=== PATIENT | male | born 1960 | race Caucasian/White ===

== ENCOUNTER 2021-09-04 05:32 | Emergency (ER) | payer BC ==
[2021-09-04 05:41] VITALS: RESP 18
[2021-09-04] MEDS ORDERED: SODIUM CHLORIDE 0.9% 1,000 ML IV STA (05:42)
--- NOTE | 2021-09-04 05:42 | ED ---
Weakness HPI - General Chief complaint: Dizziness Stated complaint: Dizziness,Nausea Time Seen by Provider: 09/04/21 05:41 Source: patient, family, RN notes reviewed, old records reviewed Mode of arrival: wheelchair Limitations: no limitations - History of Present Illness Initial comments: This is a 61-year-old male DF for evaluation. Patient has no prior history of stroke CVA or CA. Patient presents with dizziness room spinning room was severely spinning around him. Symptoms began when he woke up with the bathroom today and persisted as he was in bed. He awoke with the symptoms worsen they were last night. Patient states the room is continuously spitting. He is dizzy and his feet. No prior history of vertigo, no current chest pain shortness of breath or headache MD Complaint: generalized weakness, difficulty walking -: hour(s) Location: generalized Severity: moderate Severity scale (1-10): 4 Consistency: intermittent, now resolved Improves with: none Worsens with: none Associated Symptoms: denies other symptoms - Related Data Previous Rx's Medication Instructions Recorded Meclizine [Antivert] 25 mg PO TID #15 tab 09/04/21 Allergies Allergy/AdvReac Type Severity Reaction Status Date / Time No Known Allergies Allergy Verified 09/04/21 05:41 Review of Systems ROS Statement: Those systems with pertinent positive or pertinent negative responses have been documented in the HPI. ROS Other: All systems not noted in ROS Statement are negative. Past Medical History Past Medical History: Hypertension History of Any Multi-Drug Resistant Organisms: None Reported Past Surgical History: Orthopedic Surgery Additional Past Surgical History / Comment(s): December 2005 left hip replacement, 2006 right hip replacement Past Psychological History: No Psychological Hx Reported Smoking Status: Never smoker Past Alcohol Use History: None Reported Past Drug Use History: None Reported General Exam - General Exam Comments Initial Comments: NIH of 0 [id number] testing is normal Finger-nose testing is normal Limitations: no limitations General appearance: alert, in no apparent distress Head exam: Present: atraumatic, normocephalic, normal inspection Eye exam: Present: normal appearance, PERRL, EOMI. Absent: scleral icterus, conjunctival injection, periorbital swelling ENT exam: Present: normal exam, mucous membranes moist Neck exam: Present: normal inspection. Absent: tenderness, meningismus, lymphadenopathy Respiratory exam: Present: normal lung sounds bilaterally. Absent: respiratory distress, wheezes, rales, rhonchi, stridor Cardiovascular Exam: Present: regular rate, normal rhythm, normal heart sounds. Absent: systolic murmur, diastolic murmur, rubs, gallop, clicks GI/Abdominal exam: Present: soft, normal bowel sounds. Absent: distended, tenderness, guarding, rebound, rigid Extremities exam: Present: normal inspection, full ROM, normal capillary refill. Absent: tenderness, pedal edema, joint swelling, calf tenderness Back exam: Present: normal inspection Neurological exam: Present: alert, oriented X3, CN II-XII intact Psychiatric exam: Present: normal affect, normal mood Skin exam: Present: warm, dry, intact, normal color. Absent: rash Course Vital Signs 09/04/21 09/04/21 09/04/21 05:35 06:22 07:36 Temperature 97.1 F L 97.4 F L Pulse Rate 60 52 L 56 L Respiratory 18 18 18 Rate Blood Pressure 143/79 126/75 132/76 O2 Sat by Pulse 97 95 97 Oximetry - Reevaluation(s) Reevaluation #1: 09/04/21 06:14 Medical record is reviewed Reevaluation #2: Patient symptoms are resolved Patient remains able to walk without ataxia Patient informed results and questions answered EKG Findings - EKG Comments: EKG Findings:: EKG shows sinus bradycardia 58 CT 203 QRS 108 QTc 449 Medical Decision Making - Medical Decision Making 61 male who presented with vertiginous symptoms currently without symptoms. - Lab Data Result diagrams: 09/04/21 06:22 09/04/21 06:22 Lab Results 09/04/21 09/04/21 09/04/21 Range/Units 06:22 06:22 06:22 WBC 7.4 (3.8-10.6) k/uL RBC 5.07 (4.30-5.90) m/uL Hgb 15.7 (13.0-17.5) gm/dL Hct 46.5 (39.0-53.0) % MCV 91.7 (80.0-100.0) fL MCH 31.0 (25.0-35.0) pg MCHC 33.9 (31.0-37.0) g/dL RDW 13.1 (11.5-15.5) % Plt Count 121 L (150-450) k/uL MPV 7.5 Neutrophils % 76 % Lymphocytes % 18 % Monocytes % 4 % Eosinophils % 1 % Basophils % 1 % Neutrophils # 5.6 (1.3-7.7) k/uL Lymphocytes # 1.3 (1.0-4.8) k/uL Monocytes # 0.3 (0-1.0) k/uL Eosinophils # 0.1 (0-0.7) k/uL Basophils # 0.0 (0-0.2) k/uL PT 10.9 (9.0-12.0) sec INR 1.0 (<1.2) APTT 21.9 L (22.0-30.0) sec Sodium 138 (137-145) mmol/L Potassium 4.5 (3.5-5.1) mmol/L Chloride 108 H (98-107) mmol/L Carbon Dioxide 21 L (22-30) mmol/L Anion Gap 9 mmol/L BUN 23 H (9-20) mg/dL Creatinine 0.95 (0.66-1.25) mg/dL Est GFR (CKD-EPI)AfAm >90 (>60 ml/min/1.73 sqM) Est GFR (CKD-EPI)NonAf 87 (>60 ml/min/1.73 sqM) Glucose 164 H (74-99) mg/dL Plasma Lactic Acid Ashwin (0.7-2.0) mmol/L Calcium 9.1 (8.4-10.2) mg/dL Phosphorus 2.6 (2.5-4.5) mg/dL Magnesium 1.9 (1.6-2.3) mg/dL Total Bilirubin 0.8 (0.2-1.3) mg/dL AST 42 (17-59) U/L ALT 50 H (4-49) U/L Alkaline Phosphatase 57 (38-126) U/L Troponin I (0.000-0.034) ng/mL NT-Pro-B Natriuret Pep pg/mL Total Protein 7.3 (6.3-8.2) g/dL Albumin 4.3 (3.5-5.0) g/dL Urine Color Urine Appearance (Clear) Urine pH (5.0-8.0) Ur Specific [place] (1.001-1.035) Urine Protein (Negative) Urine Glucose (UA) (Negative) Urine Ketones (Negative) Urine Blood (Negative) Urine Nitrite (Negative) Urine Bilirubin (Negative) Urine Urobilinogen (<2.0) mg/dL Ur Leukocyte Esterase (Negative) 09/04/21 09/04/21 09/04/21 Range/Units 06:22 06:22 06:22 WBC (3.8-10.6) k/uL RBC (4.30-5.90) m/uL Hgb (13.0-17.5) gm/dL Hct (39.0-53.0) % MCV (80.0-100.0) fL MCH (25.0-35.0) pg MCHC (31.0-37.0) g/dL RDW (11.5-15.5) % Plt Count (150-450) k/uL MPV Neutrophils % % Lymphocytes % % Monocytes % % Eosinophils % % Basophils % % Neutrophils # (1.3-7.7) k/uL Lymphocytes # (1.0-4.8) k/uL Monocytes # (0-1.0) k/uL Eosinophils # (0-0.7) k/uL Basophils # (0-0.2) k/uL PT (9.0-12.0) sec INR (<1.2) APTT (22.0-30.0) sec Sodium (137-145) mmol/L Potassium (3.5-5.1) mmol/L Chloride (98-107) mmol/L Carbon Dioxide (22-30) mmol/L Anion Gap mmol/L BUN (9-20) mg/dL Creatinine (0.66-1.25) mg/dL Est GFR (CKD-EPI)AfAm (>60 ml/min/1.73 sqM) Est GFR (CKD-EPI)NonAf (>60 ml/min/1.73 sqM) Glucose (74-99) mg/dL Plasma Lactic Acid Ashwin 1.6 (0.7-2.0) mmol/L Calcium (8.4-10.2) mg/dL Phosphorus (2.5-4.5) mg/dL Magnesium (1.6-2.3) mg/dL Total Bilirubin (0.2-1.3) mg/dL AST (17-59) U/L ALT (4-49) U/L Alkaline Phosphatase (38-126) U/L Troponin I <0.012 (0.000-0.034) ng/mL NT-Pro-B Natriuret Pep 80 pg/mL Total Protein (6.3-8.2) g/dL Albumin (3.5-5.0) g/dL Urine Color Urine Appearance (Clear) Urine pH (5.0-8.0) Ur Specific [place] (1.001-1.035) Urine Protein (Negative) Urine Glucose (UA) (Negative) Urine Ketones (Negative) Urine Blood (Negative) Urine Nitrite (Negative) Urine Bilirubin (Negative) Urine Urobilinogen (<2.0) mg/dL Ur Leukocyte Esterase (Negative) 09/04/21 Range/Units 06:45 WBC (3.8-10.6) k/uL RBC (4.30-5.90) m/uL Hgb (13.0-17.5) gm/dL Hct (39.0-53.0) % MCV (80.0-100.0) fL MCH (25.0-35.0) pg MCHC (31.0-37.0) g/dL RDW (11.5-15.5) % Plt Count (150-450) k/uL MPV Neutrophils % % Lymphocytes % % Monocytes % % Eosinophils % % Basophils % % Neutrophils # (1.3-7.7) k/uL Lymphocytes # (1.0-4.8) k/uL Monocytes # (0-1.0) k/uL Eosinophils # (0-0.7) k/uL Basophils # (0-0.2) k/uL PT (9.0-12.0) sec INR (<1.2) APTT (22.0-30.0) sec Sodium (137-145) mmol/L Potassium (3.5-5.1) mmol/L Chloride (98-107) mmol/L Carbon Dioxide (22-30) mmol/L Anion Gap mmol/L BUN (9-20) mg/dL Creatinine (0.66-1.25) mg/dL Est GFR (CKD-EPI)AfAm (>60 ml/min/1.73 sqM) Est GFR (CKD-EPI)NonAf (>60 ml/min/1.73 sqM) Glucose (74-99) mg/dL Plasma Lactic Acid Ashwin (0.7-2.0) mmol/L Calcium (8.4-10.2) mg/dL Phosphorus (2.5-4.5) mg/dL Magnesium (1.6-2.3) mg/dL Total Bilirubin (0.2-1.3) mg/dL AST (17-59) U/L ALT (4-49) U/L Alkaline Phosphatase (38-126) U/L Troponin I (0.000-0.034) ng/mL NT-Pro-B Natriuret Pep pg/mL Total Protein (6.3-8.2) g/dL Albumin (3.5-5.0) g/dL Urine Color Yellow Urine Appearance Clear (Clear) Urine pH 5.0 (5.0-8.0) Ur Specific [place] 1.022 (1.001-1.035) Urine Protein Negative (Negative) Urine Glucose (UA) Negative (Negative) Urine Ketones Negative (Negative) Urine Blood Negative (Negative) Urine Nitrite Negative (Negative) Urine Bilirubin Negative (Negative) Urine Urobilinogen <2.0 (<2.0) mg/dL Ur Leukocyte Esterase Negative (Negative) - Radiology Data Radiology results: report reviewed (CT brain negative for acute disease), image reviewed Disposition Clinical Impression: Vertigo Disposition: HOME SELF-CARE Condition: Good Instructions (If sedation given, give patient instructions): Vertigo (ED) Prescriptions: Meclizine [Antivert] 25 mg PO TID #15 tab Is patient prescribed a controlled substance at d/c from ED?: No Referrals: Crystal Wills MD [Primary Care Provider] - 1-2 days
[2021-09-04] MEDS ORDERED: ONDANSETRON 4 MG TAB PO STA (06:04)
[2021-09-04] MEDS ORDERED: diphenhydrAMINE 50 MG/ML 1 ML VIAL IVP STA (06:04)
[2021-09-04] MEDS ORDERED: MECLIZINE 12.5 MG TAB PO STA (06:04)
[2021-09-04 06:36] LABS: Basophils % (A) 1 %; Eosinophils # (A) 0.1 k/uL (0-0.7); Eosinophils % (A) 1 %; HCT 46.5 % (39.0-53.0); HGB 15.7 gm/dL (13.0-17.5); Lymphocytes # (A) 1.3 k/uL (1.0-4.8); Lymphocytes % (A) 18 %; MCHC 33.9 g/dL (31.0-37.0); MCV 91.7 fL (80.0-100.0); Mean Platelet Volume 7.5; Monocytes # (A) 0.3 k/uL (0-1.0); Monocytes % (A) 4 %; Neutrophils # (A) 5.6 k/uL (1.3-7.7); Neutrophils % (A) 76 %; Platelet Count 121 k/uL (150-450); RBC 5.07 m/uL (4.30-5.90); RDW 13.1 % (11.5-15.5); WBC 7.4 k/uL (3.8-10.6)
[2021-09-04 06:51] LABS: Prothrombin Time 10.9 sec (9.0-12.0)
[2021-09-04 06:52] LABS: ALT 50 U/L (4-49); AST 42 U/L (17-59); African American GFR (CKD) >90 (>60 ml/min/1.73 sqM); Albumin 4.3 g/dL (3.5-5.0); Alkaline Phosphatase 57 U/L (38-126); Anion Gap 9 mmol/L; Blood Urea Nitrogen 23 mg/dL (9-20); Calcium 9.1 mg/dL (8.4-10.2); Carbon Dioxide 21 mmol/L (22-30); Chloride 108 mmol/L (98-107); Glucose 164 mg/dL (74-99); Magnesium 1.9 mg/dL (1.6-2.3); Non-African American GFR(CKD) 87 (>60 ml/min/1.73 sqM); Partial Thromboplastin Time 21.9 sec (22.0-30.0); Phosphorus 2.6 mg/dL (2.5-4.5); Potassium 4.5 mmol/L (3.5-5.1); Sodium 138 mmol/L (137-145); Total Bilirubin 0.8 mg/dL (0.2-1.3); Total Protein 7.3 g/dL (6.3-8.2)
[2021-09-04 07:01] LABS: Appearance,Urine Clear (Clear); Bilirubin,Urine Negative (Negative); Blood,Urine Negative (Negative); Color,Urine Yellow; Glucose,Urine (UA) Negative (Negative); Ketones,Urine Negative (Negative); Leukocyte Esterase,Urine Negative (Negative); Nitrite,Urine Negative (Negative); Protein,Urine Negative (Negative); Specific Gravity,Urine 1.022 (1.001-1.035); Urobilinogen,Urine <2.0 mg/dL (<2.0)
--- NOTE | 2021-09-04 07:02 | CT ---
EXAMINATION TYPE: CT brain cspine wo con DATE OF EXAM: 09/04/2021 COMPARISON: None HISTORY: dizziness CT DLP: 2099 mGycm Automated exposure control for dose reduction was used. Images of the brain and cervical spine without contrast. Ventricles have normal size. There is no mass effect nor midline shift. There is no sign of intracran ial hemorrhage. The calvarium is intact. There is normal aeration of the mastoid sinuses. There is so me mucosal thickening in the ethmoid sinuses. Skull base is intact. The cervical vertebra have normal alignment. There is some anterior mild spurring at C4-5 and C5-6 an d C6-7. Facet joints are intact. There is no compression fracture. IMPRESSION: Hypertrophic mild degenerative changes in the mid and lower cervical spine. No fracture. Negative CT scan of the brain. Mild ethmoid sinusitis.
[2021-09-04 07:55] VITALS: BP 132/76; PULSE 56; TEMP 97.4
== END 2021-09-04 07:36 | disposition home or self-care (01) ==
LOC: EC 05:32
DX: R42 Dizziness and giddiness (principal); I10 Essential (primary) hypertension
CPT/HCPCS: 36415; 93005; 83880; 80053; 83605; 83735; 84100; 84484; 85025; 85610; 85730; 81003; 72125; 70450; 99284; 96374; J1200

== ENCOUNTER 2023-07-22 18:46 | Emergency (ER) | payer BC ==
[2023-07-22] MEDS ORDERED: SODIUM CHLORIDE 0.9% 1,000 ML IV STA (19:14)
[2023-07-22 19:44] LABS: Basophils # (A) 0.1 k/uL (0-0.2); Basophils % (A) 1 %; Eosinophils # (A) 0.1 k/uL (0-0.7); Eosinophils % (A) 2 %; HCT 47.3 % (39.0-53.0); HGB 16.2 gm/dL (13.0-17.5); Lymphocytes # (A) 2.3 k/uL (1.0-4.8); Lymphocytes % (A) 24 %; MCH 30.7 pg (25.0-35.0); MCHC 34.2 g/dL (31.0-37.0); MCV 89.9 fL (80.0-100.0); Monocytes # (A) 0.7 k/uL (0-1.0); Monocytes % (A) 7 %; Neutrophils # (A) 6.2 k/uL (1.3-7.7); Neutrophils % (A) 65 %; Platelet Count 146 k/uL (150-450); RBC 5.26 m/uL (4.30-5.90); RDW 13.2 % (11.5-15.5); WBC 9.6 k/uL (3.8-10.6)
[2023-07-22 19:49] LABS: ALT 86 U/L (4-49); AST 89 U/L (17-59); African American GFR (CKD) 75 (>60 ml/min/1.73 sqM); Albumin 4.6 g/dL (3.5-5.0); Alkaline Phosphatase 82 U/L (38-126); Anion Gap 13 mmol/L; Blood Urea Nitrogen 20 mg/dL (9-20); Carbon Dioxide 23 mmol/L (22-30); Chloride 102 mmol/L (98-107); Glucose 209 mg/dL (74-99); Magnesium 1.9 mg/dL (1.6-2.3); Non-African American GFR(CKD) 65 (>60 ml/min/1.73 sqM); Potassium 4.2 mmol/L (3.5-5.1); Sodium 138 mmol/L (137-145); Total Bilirubin 0.6 mg/dL (0.2-1.3); Total Protein 7.6 g/dL (6.3-8.2)
--- NOTE | 2023-07-22 20:12 | XR ---
EXAMINATION TYPE: XR chest 2V DATE OF EXAM: 07/22/2023 8:00 PM CLINICAL INDICATION:Male, 62 years old with history of dysrhythmia; [facility] COMPARISON: None TECHNIQUE: XR chest 2V Frontal and lateral views of the chest. FINDINGS: Lungs/Pleura: There is no evidence of pleural effusion, focal consolidation, or pneumothorax. Pulmonary vascularity: Unremarkable. Heart/mediastinum: Cardiomediastinal silhouette is unremarkable. Musculoskeletal: No acute osseous pathology. IMPRESSION: No acute cardiopulmonary disease/process.
[2023-07-22 20:59] VITALS: RESP 18
--- NOTE | 2023-07-22 21:21 | ED ---
General Adult HPI - General Chief complaint: Arrhythmia/Palpitations Stated complaint: High Heart Rate Time Seen by Provider: 07/22/23 19:02 Source: patient, family, RN notes reviewed, old records reviewed Mode of arrival: wheelchair Limitations: no limitations - History of Present Illness Initial comments: Patient is a 62-year-old male presents emergency Department with palpitations and tachycardia. States he feels like his heart is racing. States this has occurred previously. I was notified of the patient while he was in a TPA and it showed he was in SVT. Patient was immediately placed in trauma bay 4. He denies any chest pain, abdominal pain, nausea, vomiting. No something cardiac history other than hypertension. Patient is obese. States he has had these types of palpitations in the past but usually self resolved. These symptoms pe rsisted for over 30 minutes prior to arrival. Other acute complaint at this time. Denies any fevers, chills, cough. Presents for further evaluation. - Related Data Home Medications Medication Instructions Recorded Confirmed Atorvastatin [Lipitor] 20 mg PO DAILY 07/22/23 07/22/23 Triamterene-Hctz 37.5-25Mg 1 tab PO DAILY 07/22/23 07/22/23 [Maxzide 37.5-25] amLODIPine [Norvasc] 10 mg PO DAILY 07/22/23 07/22/23 lisinopriL [Zestril] 10 mg PO DAILY 07/22/23 07/22/23 Allergies Allergy/AdvReac Type Severity Reaction Status Date / Time No Known Allergies Allergy Verified 07/22/23 20:57 Review of Systems ROS Statement: Those systems with pertinent positive or pertinent negative responses have been documented in the HPI. Review of Systems: CONST: Denies fever EYES: Denies blurry vision ENT: Denies nasal congestion C/V: Endorses Tachycardia, palpitations RESP: Denies shortness of breath GI: Denies abdominal pain : Denies dysuria SKIN: Denies rash. MSK: Denies joint pain. NEURO: Denies headache ROS Other: All systems not noted in ROS Statement are negative. Past Medical History Past Medical History: Hypertension History of Any Multi-Drug Resistant Organisms: None Reported Past Surgical History: Orthopedic Surgery Additional Past Surgical History / Comment(s): December 2005 left hip replacement, 2006 right hip replacement Past Psychological History: No Psychological Hx Reported Smoking Status: Never smoker Past Alcohol Use History: None Reported Past Drug Use History: None Reported General Exam - General Exam Comments Initial Comments: General: Appears in no acute distress. HEAD: Normal with no signs of head trauma. EYES: PERRLA, EOMI, conjunctiva normal, no discharge. ENT: Hearing grossly intact, normal oropharynx. RESPIRATORY: Clear breath sounds bilaterally. No wheezes, rales, or rhonchi. C/V: Tachycardia. S1 and S2 auscultated, no edema, peripheral pulses 2+ and intact throughout ABD: Abd is soft, nontender, nondistended EXT: Normal range of motion, no obvious deformity SKIN: No rashes or lesions observed on exposed skin. NEURO: Alert and oriented x 4. Limitations: no limitations Course Vital Signs 07/22/23 07/22/23 07/22/23 18:50 19:16 20:54 Temperature 98.6 F Pulse Rate 191 H 98 106 H Respiratory 20 16 18 Rate Blood Pressure 126/67 120/78 130/84 O2 Sat by Pulse 95 97 97 Oximetry 07/22/23 21:27 Temperature 98.3 F Pulse Rate 92 Respiratory 18 Rate Blood Pressure 128/75 O2 Sat by Pulse 99 Oximetry Medical Decision Making - Medical Decision Making Was pt. sent in by a medical professional or institution (, PA, MUSSEL FARMER, urgent care, hospital, or retirement...) When possible be specific @ -No Did you speak to anyone other than the patient for history (EMS, parent, family, police, friend...)? What history was obtained from this source @ -Presents with daughter who assists with the patient's past medical history. Did you review nursing and triage notes (agree or disagree)? Why? @ -I reviewed and agree with nursing and triage notes Were old charts reviewed (outside hosp., previous admission, EMS record, old EKG, old radiological studies, urgent care reports/EKG's, retirement records)? Report findings @ -No old charts were reviewed Differential Diagnosis (chest pain, altered mental status, abdominal pain women, abdominal pain men, vaginal bleeding, weakness, fever, dyspnea, syncope, headache, dizziness, GI bleed, back pain, seizure, CVA, palpatations, mental health, musculoskeletal)? @ -Differential Palpitations Ventricular arrhythmias, atrial arrhythmias, myocardial infarction, anemia, thyrotoxicosis, electrolyte imbalance, hypokalemia, pulmonary embolism, pulmonary disease, drugs, alcohol, anxiety, stress.... This is not meant to be an all-inclusive list. EKG interpreted by me (3pts min.). @ -As above X-rays interpreted by me (1pt min.). @ -Chest x-ray reveals no obvious acute cardio pulmonary process. CT interpreted by me (1pt min.). @ -None done U/S interpreted by me (1pt. min.). @ -None done What testing was considered but not performed or refused? (CT, X-rays, U/S, labs)? Why? @ -None What meds were considered but not given or refused? Why? @ -None Did you discuss the management of the patient with other professionals (professionals i.e. , PA, [employer]SEL F[employer]ER, lab, RT, psych nurse, social science professor, soldering machine feeder, teacher, sustainability officer, case managers)? Give summary @ -No Was smoking cessation discussed for >3mins.? @ -No Was critical care preformed (if so, how long)? @ -Yes, 10 minutes Were there social determinants of health that impacted care today? How? (Homelessness, low income, unemployed, alcoholism, drug addiction, transportat ion, low edu. Level, literacy, decrease access to med. care, correction, rehab)? @ -No Was there de-escalation of care discussed even if they declined (Discuss DNR or withdrawal of care, Hospice)? DNR status @ -No What co-morbidities impacted this encounter? (DM, HTN, Smoking, COPD, CAD, Cancer, CVA, ARF, Chemo, Hep., AIDS, mental health diagnosis, sleep apnea, morbid obesity)? @ -None Was patient admitted / discharged? Hospital course, mention meds given and route, prescriptions, significant lab abnormalities, going to OR and other pertinent info. @ -Based on the patient's presentation and physical exam, presents in SVT. Patient was placed in trauma bay 4. His no acute complaints other than feeling of his heart racing. Believes this may have happened previously however this is a persistent episode. Patient is hemodynamically stable with normal vital signs. IV was initiated. Patient was placed on cardiac pads in the event he becomes unstable, and vagal maneuver was attempted. Vagal maneuver was successful and patient was converted to normal sinus rhythm. Repeat EKG doesn't support this. We'll obtain basic labs at this time as well as chest x-ray. He is asymptomatic at this time. He was in agreement this plan. Patient's labs within acceptable limits. Vital signs negative. Chest x-ray unremarkable. EKGs show no sign of acute ischemia. On reevaluation come patient remains asymptomatic. We discussed his workup. He will be discharged home at this time. He was in agreement this plan. Recommended follow-up with cardiology in his PCP. He was in agreement with this plan. I instructed the patient to follow up with their PCP in the next 1-3 days. I explained that the patient should return to the emergency department if they experience any worsening symptoms. Strict return precautions were discussed with the patient. The patient expressed understanding of these instructions. I answered all questions that the patient had. The patient was discharged home in good condition with their prescriptions and follow up information. Undiagnosed new problem with uncertain prognosis? @ -No Drug Therapy requiring intensive monitoring for toxicity (Heparin, Nitro, Insu sergey, Cardizem)? @ -No Were any procedures done? @ -No Diagnosis/symptom? @ -Supraventricular tachycardia Acute, or Chronic, or Acute on Chronic? @ -Acute Uncomplicated (without systemic symptoms) or Complicated (systemic symptoms)? @ -Complicated Side effects of treatment? @ -No Exacerbation, Progression, or Severe Exacerbation? @ -No Poses a threat to life or bodily function? How? (Chest pain, USA, NC, pneumonia, PE, COPD, DKA, ARF, appy, cholecystitis, CVA, Diverticulitis, Homicidal, Suicidal, threat to staff... and all critical care pts) @ -No - Lab Data Result diagrams: 07/22/23 19:16 07/22/23 19:16 Lab Results 07/22/23 07/22/23 07/22/23 Range/Units 19:16 19:16 19:16 WBC 9.6 (3.8-10.6) k/uL RBC 5.26 (4.30-5.90) m/uL Hgb 16.2 (13.0-17.5) gm/dL Hct 47.3 (39.0-53.0) % MCV 89.9 (80.0-100.0) fL MCH 30.7 (25.0-35.0) pg MCHC 34.2 (31.0-37.0) g/dL RDW 13.2 (11.5-15.5) % Plt Count 146 L (150-450) k/uL MPV 8.0 Neutrophils % 65 % Lymphocytes % 24 % Monocytes % 7 % Eosinophils % 2 % Basophils % 1 % Neutrophils # 6.2 (1.3-7.7) k/uL Lymphocytes # 2.3 (1.0-4.8) k/uL Monocytes # 0.7 (0-1.0) k/uL Eosinophils # 0.1 (0-0.7) k/uL Basophils # 0.1 (0-0.2) k/uL Sodium 138 (137-145) mmol/L Potassium 4.2 (3.5-5.1) mmol/L Chloride 102 (98-107) mmol/L Carbon Dioxide 23 (22-30) mmol/L Anion Gap 13 mmol/L BUN 20 (9-20) mg/dL Creatinine 1.20 (0.66-1.25) mg/dL Est GFR (CKD-EPI)AfAm 75 (>60 ml/min/1.73 sqM) Est GFR (CKD-EPI)NonAf 65 (>60 ml/min/1.73 sqM) Glucose 209 H (74-99) mg/dL Calcium 9.0 (8.4-10.2) mg/dL Magnesium 1.9 (1.6-2.3) mg/dL Total Bilirubin 0.6 (0.2-1.3) mg/dL AST 89 H (17-59) U/L ALT 86 H (4-49) U/L Alkaline Phosphatase 82 (38-126) U/L Total Protein 7.6 (6.3-8.2) g/dL Albumin 4.6 (3.5-5.0) g/dL Influenza Type A (PCR) Not Detected (Not Detectd) Influenza Type B (PCR) Not Detected (Not Detectd) RSV (PCR) Not Detected (Not Detectd) SARS-CoV-2 (PCR) Not Detected (Not Detectd) - EKG Data -: EKG Interpreted by Me EKG Comments: 12-lead Electrocardiogram Interpretation Note EKG was reviewed and interpreted by myself. 12-lead ECG performed at 1859 is interpreted by me as revealing supraventricular tachycardia at a rate of 191 beats per minute. Left axis deviation. QRS duration is 113 ms, QTc is 351 ms.. There were no ST or T wave abnormalities to suggest myocardial ischemia or injury. R wave progression across the precordium was satisfactory. By my interpretation this EKG is non-diagnostic for acute ischemia. 12-lead Electrocardiogram Interpretation Note EKG was reviewed and interpreted by myself. 12-lead ECG performed at 1912 is interpreted by me as revealing sinus tachycardia at a rate of 108 beats per minute. Left axis deviation. IL interval is 151 ms, QRS duration is 101 ms, QTc is 392 ms.. There were no ST or T wave abnormalities to suggest myocardial ischemia or injury. R wave progression across the precordium was satisfactory. By my interpretation this EKG is non-diagnostic for acute ischemia. Critical Care Time Critical Care Time: Yes Total Critical Care Time: 10 Disposition Clinical Impression: SVT (supraventricular tachycardia) Disposition: HOME SELF-CARE Condition: Good Instructions (If sedation given, give patient instructions): Supraventricular Tachycardia (ED) Is patient prescribed a controlled substance at d/c from ED?: No Referrals: Efrain Quan MD [Primary Care Provider] - 1-2 days Time of Disposition: 21:15
[2023-07-22 21:45] VITALS: BP 128/75; PULSE 92; TEMP 98.3
== END 2023-07-22 21:28 | disposition home or self-care (01) ==
LOC: EC 18:46
DX: I47.10 Supraventricular tachycardia, unspecified (principal); I10 Essential (primary) hypertension; E66.9 Obesity, unspecified; Z20.822 Contact with and (suspected) exposure to COVID-19; Z68.42 Body mass index [BMI] 45.0-49.9, adult; Z79.899 Other long term (current) drug therapy
CPT/HCPCS: 36415; 71046; 80053; 83735; 84443; 85025; 87636; 93005; 96360; 99285

== ENCOUNTER 2024-05-08 09:07 | Day surgery (SDC) | payer BC ==
[~2024-05-08 09:07] MED LIST: LIDOCAINE 1% (10MG/ML) FOR IV START INTRADERMA PRN
[2024-05-08 09:36] VITALS: RESP 16; TEMP 97.4
[2024-05-08] MEDS: LACTATED RINGERS 1,000 ML IV SCH (09:43)
[2024-05-08] MEDS: IV FLUID CONTINUATION 1,000 ML IV ONE (09:43)
[2024-05-08] MEDS ORDERED: PROPOFOL 10 MG/ML 20 ML VIAL IV ONE (09:46)
--- NOTE | 2024-05-08 09:51 | P.GSHP ---
History of Present Illness H&P Date: 05/08/24 Chief Complaint: Colon cancer screening 63-year-old male here for colonoscopy. Last colonoscopy 10 to 12 years ago. That was normal. No bowel complaints. No family history of colon cancer. Past Medical History Past Medical History: Diabetes Mellitus, Hyperlipidemia, Hypertension, Supraventricular Tachycardia (SVT) Additional Past Medical History / Comment(s): A1C now 5.4 ; diagnosed with SVT 6 months ago. 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 Past Anesthesia/Blood Transfusion Reactions: No Reported Reaction Smoking Status: Never smoker - Past Family History Father Family Medical History: No Reported History Medications and Allergies Home Medications Medication Instructions Recorded Confirmed Type Atorvastatin [Lipitor] 20 mg PO DAILY 07/22/23 05/03/24 History Triamterene-Hctz 37.5-25Mg 1 tab PO DAILY 07/22/23 05/03/24 History [Maxzide 37.5-25] amLODIPine [Norvasc] 10 mg PO DAILY 07/22/23 05/03/24 History lisinopriL [Zestril] 10 mg PO DAILY 07/22/23 05/03/24 History Dapagliflozin Propanediol [Farxiga] 10 mg PO DAILY 01/12/24 05/03/24 History Metoprolol Tartrate 25 mg PO BID 01/12/24 05/03/24 History Semaglutide [Ozempic] 2 mg SQ CHANDLER 05/03/24 05/03/24 History Allergies Allergy/AdvReac Type Severity Reaction Status Date / Time No Known Allergies Allergy Verified 05/08/24 09:32 Surgical - Exam Vital Signs Temp Pulse Resp BP Pulse Ox 97.4 F L 83 16 147/78 96 05/08/24 09:34 05/08/24 09:34 05/08/24 09:34 05/08/24 09:34 05/08/24 09:34 Physical exam: General: Well-developed, well-nourished HEENT: Normocephalic, sclerae nonicteric Abdomen: Nontender, nondistended Extremities: No edema Neuro: Alert and oriented Assessment and Plan (1) Colon cancer screening Narrative/Plan: Will proceed with colonoscopy at this time. Current Visit: Yes Status: Acute Code(s): Z12.11 - ENCOUNTER FOR SCREENING FOR MALIGNANT NEOPLASM OF COLON SNOMED Code(s): 918176553
--- NOTE | 2024-05-08 10:06 | P.PCN ---
Date of Procedure: 05/08/24 Procedure(s) Performed: PREOPERATIVE DIAGNOSIS: Colon cancer screening POSTOPERATIVE DIAGNOSIS: Tortuous colon otherwise normal PROCEDURE: Colonoscopy ANESTHESIA: MAC SURGEON: Geronimo Nevarez M.D. SPECIMENS: None ENDOSCOPIC PROCEDURE: The patient was placed on the endoscopy table in the left decubitus position. The Olympus colonoscope was inserted into the anus and passed under direct visualization to the region of the cecum. I was unable to advance the scope into the base of the cecum. The patient's colon was fairly tortuous. This was despite multiple position changes and abdominal pressures. The scope was then withdrawn. There were no neoplastic inflammatory or polypoid lesions throughout the cecum, ascending, transverse, descending, sigmoid and rectum. There was no visible diverticulosis noted. Digital rectal examination was normal. The patient was taken to the recovery room in stable condition per anesthesia guidelines. RECOMMENDATIONS: Resume diet. Repeat colonoscopy 7 to 10 years.
[2024-05-08 10:33] VITALS: BP 117/76; PULSE 82
== END 2024-05-08 10:54 | disposition home or self-care (01) ==
LOC: ORWHC2ENDO 09:07
PROVIDERS: ATTEND Surgery

== ENCOUNTER → 2024-05-11 | Outpatient (CLI) | payer BC ==
--- NOTE | 2024-05-11 11:07 | CT ---
EXAMINATION TYPE: CT abdomen pelvis wo/w con DATE OF EXAM: 05/11/2024 COMPARISON: None HISTORY: RLQ PAIN CT DLP: 3328 mGycm CONTRAST: CT scan of the abdomen and pelvis is performed with Oral Contrast and without and with IV Contrast, p atient injected with 100ml mL of Isovue 370. FINDINGS: LUNG BASES-: No visible nodule. No infiltrate. LIVER/GB: No calcified gallstones. No space occupying hepatic lesion. Biliary tree is of normal ca liber. PANCREAS: No inflammation. No distinct mass. SPLEEN: No splenic enlargement. No lesion seen. ADRENALS: No nodule. No thickening. KIDNEYS/BLADDER: No hydronephrosis. No nephrolithiasis. No distinct renal mass. Urinary bladder g rossly unremarkable. BOWEL: Normal appendix. Normal bowel caliber. No inflammation. GENITAL ORGANS: No gross abnormality. LYMPH NODES: No greater than 1cm abdominal or pelvic lymph nodes are appreciated. AORTA: No significant abnormality. OSSEOUS STRUCTURES: Hip prostheses with streak limiting artifact seen within the pelvis. OTHER: No significant additional abnormality is seen. IMPRESSION: 1. No discrete abnormality appreciated to account for the patient's symptoms. [facility], , 05/11/2024 11:05 AM
== END | disposition home or self-care (01) ==
LOC: RADCTMAIN 07:11
PROVIDERS: ATTEND Internal Medicine
DX: R19.01 Right upper quadrant abdominal swelling, mass and lump (principal)
CPT/HCPCS: 74178

== ENCOUNTER 2024-09-26 05:56 | Inpatient (IN) | payer BC ==
--- NOTE | 2024-09-26 06:37 | ED ---
Nausea/Vomiting/Diarrhea HPI - General Chief complaint: Nausea/Vomiting/Diarrhea Stated complaint: fever, vomiting,neck pain Time Seen by Provider: 09/26/24 05:58 Source: patient, RN notes reviewed Mode of arrival: ambulatory Limitations: no limitations - History of Present Illness Initial comments: 64-year-old male presents emergency department chief complaint of nausea vomiting diarrhea x 1 week. Patient states he has had some bodyaches. Patient states that his neck and back are sore from emesis. Patient denies any headache or dizziness currently. Patient has no localized abdominal pain. Patient does admit that he is on Ozempic his last injection was 2 weeks ago he states he did not take this week's dose because he has been sick. Patient denies any chest pain shortness of breath no dysuria no melanotic stools no hematochezia. - Related Data Home Medications Medication Instructions Recorded Confirmed Atorvastatin [Lipitor] 20 mg PO DAILY 07/22/23 05/03/24 Triamterene-Hctz 37.5-25Mg 1 tab PO DAILY 07/22/23 05/03/24 [Maxzide 37.5-25] amLODIPine [Norvasc] 10 mg PO DAILY 07/22/23 05/03/24 lisinopriL [Zestril] 10 mg PO DAILY 07/22/23 05/03/24 Dapagliflozin Propanediol [Farxiga] 10 mg PO DAILY 01/12/24 05/03/24 Metoprolol Tartrate 25 mg PO BID 01/12/24 05/03/24 Semaglutide [Ozempic] 2 mg SQ CHANDLER 05/03/24 05/03/24 Allergies Allergy/AdvReac Type Severity Reaction Status Date / Time No Known Allergies Allergy Verified 09/26/24 06:09 Review of Systems ROS Statement: Those systems with pertinent positive or pertinent negative responses have been documented in the HPI. ROS Other: All systems not noted in ROS Statement are negative. Past Medical History Past Medical History: Diabetes Mellitus, Hyperlipidemia, Hypertension, Supraventricular Tachycardia (SVT) Additional Past Medical History / Comment(s): A1C now 5.4 ; diagnosed with SVT 6 months ago. 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 Past Anesthesia/Blood Transfusion Reactions: No Reported Reaction Past Psychological History: No Psychological Hx Reported Smoking Status: Never smoker Past Alcohol Use History: None Reported Past Drug Use History: None Reported - Past Family History Father Family Medical History: No Reported History General Exam Limitations: no limitations General appearance: alert, in no apparent distress Head exam: Present: atraumatic, normocephalic, normal inspection Eye exam: Present: normal appearance, PERRL, EOMI. Absent: scleral icterus, conjunctival injection, periorbital swelling ENT exam: Present: normal exam, normal oropharynx, mucous membranes moist Neck exam: Present: normal inspection, full ROM. Absent: tenderness, meningismus, lymphadenopathy Respiratory exam: Present: normal lung sounds bilaterally. Absent: respiratory distress, wheezes, rales, rhonchi, stridor Cardiovascular Exam: Present: regular rate, normal rhythm, normal heart sounds. Absent: systolic murmur, diastolic murmur, rubs, gallop, clicks GI/Abdominal exam: Present: soft, normal bowel sounds. Absent: distended, tenderness, guarding, rebound, rigid Course Vital Signs 09/26/24 09/26/24 09/26/24 06:09 06:29 06:47 Temperature 97.2 F L 97.7 F Pulse Rate 77 70 Respiratory 18 18 Rate Blood Pressure 87/55 83/54 O2 Sat by Pulse 98 95 Oximetry 09/26/24 09/26/24 09/26/24 06:50 07:35 08:00 Temperature Pulse Rate 66 64 67 Respiratory 18 22 22 Rate Blood Pressure 90/53 107/53 100/60 O2 Sat by Pulse 95 98 99 Oximetry Medical Decision Making - Medical Decision Making Was pt. sent in by a medical professional or institution (, PA, ADVERTISING EDITOR, urgent care, hospital, or jail...) When possible be specific @ -No Did you speak to anyone other than the patient for history (EMS, parent, family, police, friend...)? What history was obtained from this source @ -No Did you review nursing and triage notes (agree or disagree)? Why? @ -I reviewed and agree with nursing and triage notes Were old charts reviewed (outside hosp., previous admission, EMS record, old EKG, old radiological studies, urgent care reports/EKG's, jail records)? Report findings @ -No old charts were reviewed Differential Diagnosis (chest pain, altered mental status, abdominal pain women, abdominal pain men, vaginal bleeding, weakness, fever, dyspnea, syncope, headache, dizziness, GI bleed, back pain, seizure, CVA, palpatations, mental health, musculoskeletal)? @ -Differential Weakness: Hypoglycemia, shock, sepsis, hyponatremia, anemia, infection, MO, ETOH, adverse medicine reaction, overdose, stroke, this is not meant to be an all-inclusive list. EKG interpreted by me (3pts min.). @ -As above X-rays interpreted by me (1pt min.). @ -None done CT interpreted by me (1pt min.). @ -None done U/S interpreted by me (1pt. min.). @ -Ultrasound kidney bladder showing no acute process What testing was considered but not performed or refused? (CT, X-rays, U/S, labs)? Why? @ -None What meds were considered but not given or refused? Why? @ -None Did you discuss the management of the patient with other professionals (professionals i.e. , PA, ADVERTISING EDITOR, lab, RT, psych nurse, social services assistant, signal tower operator, teacher, aviation safety officer, medical case worker)? Give summary @ -Discussed case with Dr. Rivera who came and evaluated patient recommended bicarb 3 A in D5 water, another liter bolus along with admission. Discussed case with Dr. Gruber for admission Was smoking cessation discussed for >3mins.? @ -No Was critical care preformed (if so, how long)? @ -No Were there social determinants of health that impacted care today? How? (Homelessness, low income, unemployed, alcoholism, drug addiction, transportation, low edu. Level, literacy, decrease access to med. care, [facility], rehab)? @ -No Was there de-escalation of care discussed even if they declined (Discuss DNR or withdrawal of care, Hospice)? DNR status @ -No What co-morbidities impacted this encounter? (DM, HTN, Smoking, COPD, CAD, Cancer, CVA, ARF, Chemo, Hep., AIDS, mental health diagnosis, sleep apnea, morbid obesity)? @ -Diabetes hypertension Was patient admitted / discharged? Hospital course, mention meds given and route, prescriptions, significant lab abnormalities, going to OR and other pertinent info. @ -Admitted patient found to have acute renal failure, severe metabolic acidosis. Patient was given fluid bolus, started on maintenance bicarb with D5 water infusion, nephrology evaluation admission to medicine. Undiagnosed new problem with uncertain prognosis? @ -No Drug Therapy requiring intensive monitoring for toxicity (Heparin, Nitro, Insulin, Cardizem)? @ -No Were any procedures done? @ -No Diagnosis/symptom? @ -Metabolic acidosis, acute renal failure, nausea vomiting Acute, or Chronic, or Acute on Chronic? @ -Acute Uncomplicated (without systemic symptoms) or Complicated (systemic symptoms)? @ -Complicated Side effects of treatment? @ -No Exacerbation, Progression, or Severe Exacerbation? @ -No Poses a threat to life or bodily function? How? (Chest pain, USA, MO, pneumonia, PE, COPD, DKA, ARF, appy, cholecystitis, CVA, Diverticulitis, Homicidal, Suicidal, threat to staff... and all critical care pts) @ -Yes metabolic acidosis causing endorgan failure - Lab Data Result diagrams: 09/26/24 06:34 09/26/24 06:36 Lab Results 09/26/24 09/26/24 09/26/24 Range/Units 06:34 06:34 06:36 WBC 13.1 H (3.8-10.6) k/uL RBC 5.45 (4.30-5.90) m/uL Hgb 16.1 (13.0-17.5) gm/dL Hct 49.8 (39.0-53.0) % MCV 91.4 (80.0-100.0) fL MCH 29.5 (25.0-35.0) pg MCHC 32.2 (31.0-37.0) g/dL RDW 13.9 (11.5-15.5) % Plt Count 177 (150-450) k/uL MPV 7.7 Neutrophils % 79 % Lymphocytes % 10 % Monocytes % 8 % Eosinophils % 1 % Basophils % 0 % Neutrophils # 10.3 H (1.3-7.7) k/uL Lymphocytes # 1.4 (1.0-4.8) k/uL Monocytes # 1.0 (0-1.0) k/uL Eosinophils # 0.2 (0-0.7) k/uL Basophils # 0.1 (0-0.2) k/uL VBG pH (7.31-7.41) VBG pCO2 (37-51) mmHg VBG HCO3 (24-28) mmol/L Sodium 132 L (137-145) mmol/L Potassium 5.1 (3.5-5.1) mmol/L Chloride 104 (98-107) mmol/L Carbon Dioxide 7 L* (22-30) mmol/L Anion Gap 21 mmol/L BUN 113 H* (9-20) mg/dL Creatinine 9.57 H* (0.66-1.25) mg/dL Est GFR (CKD-EPI)AfAm 6 (>60 ml/min/1.73 sqM) Est GFR (CKD-EPI)NonAf 5 (>60 ml/min/1.73 sqM) Glucose 142 H (74-99) mg/dL Plasma Lactic Acid Sahwin (0.7-2.0) mmol/L Calcium 8.5 (8.4-10.2) mg/dL Magnesium 1.8 (1.6-2.3) mg/dL Total Bilirubin 1.2 (0.2-1.3) mg/dL AST 27 (17-59) U/L ALT 27 (4-49) U/L Alkaline Phosphatase 57 (38-126) U/L Total Protein 7.4 (6.3-8.2) g/dL Albumin 4.4 (3.5-5.0) g/dL Lipase 869 H (23-300) U/L Influenza Type A (PCR) Not Detected (Not Detectd) Influenza Type B (PCR) Not Detected (Not Detectd) RSV (PCR) Not Detected (Not Detectd) SARS-CoV-2 (PCR) Not Detected (Not Detectd) 09/26/24 09/26/24 Range/Units 06:44 08:16 WBC (3.8-10.6) k/uL RBC (4.30-5.90) m/uL Hgb (13.0-17.5) gm/dL Hct (39.0-53.0) % MCV (80.0-100.0) fL MCH (25.0-35.0) pg MCHC (31.0-37.0) g/dL RDW (11.5-15.5) % Plt Count (150-450) k/uL MPV Neutrophils % % Lymphocytes % % Monocytes % % Eosinophils % % Basophils % % Neutrophils # (1.3-7.7) k/uL Lymphocytes # (1.0-4.8) k/uL Monocytes # (0-1.0) k/uL Eosinophils # (0-0.7) k/uL Basophils # (0-0.2) k/uL VBG pH 7.12 L* (7.31-7.41) VBG pCO2 28 L (37-51) mmHg VBG HCO3 9 L* (24-28) mmol/L Sodium (137-145) mmol/L Potassium (3.5-5.1) mmol/L Chloride (98-107) mmol/L Carbon Dioxide (22-30) mmol/L Anion Gap mmol/L BUN (9-20) mg/dL Creatinine (0.66-1.25) mg/dL Est GFR (CKD-EPI)AfAm (>60 ml/min/1.73 sqM) Est GFR (CKD-EPI)NonAf (>60 ml/min/1.73 sqM) Glucose (74-99) mg/dL Plasma Lactic Acid Ashwin 1.4 (0.7-2.0) mmol/L Calcium (8.4-10.2) mg/dL Magnesium (1.6-2.3) mg/dL Total Bilirubin (0.2-1.3) mg/dL AST (17-59) U/L ALT (4-49) U/L Alkaline Phosphatase (38-126) U/L Total Protein (6.3-8.2) g/dL Albumin (3.5-5.0) g/dL Lipase (23-300) U/L Influenza Type A (PCR) (Not Detectd) Influenza Type B (PCR) (Not Detectd) RSV (PCR) (Not Detectd) SARS-CoV-2 (PCR) (Not Detectd) - EKG Data -: EKG Interpreted by Me EKG Comments: EKG performed at 6: 57 sinus rhythm rate of 64 NM 191 QRS 121 QT/QTc 407/417 Disposition Clinical Impression: Acute renal failure, Nausea & vomiting, Metabolic acidosis Disposition: ADMITTED IP TO THIS [facility] Condition: Poor Referrals: David Valladares DO [Primary Care Provider] - 1-2 days Time of Disposition: 08:48
[2024-09-26] MEDS: KETOROLAC 15 MG/ML 1 ML VIAL IVP STA (06:44)
[2024-09-26] MEDS: ONDANSETRON 4 MG/2 ML VIAL IVP STA (06:46)
[2024-09-26] MEDS: SODIUM CHLORIDE 0.9% 500 ML 500 ML IV STA (06:49)
[2024-09-26] MEDS: FAMOTIDINE 20 MG/2 ML VIAL IV STA (06:49)
[2024-09-26] MEDS: SODIUM CHLORIDE 0.9% 1,000 ML IV STA (06:49)
[2024-09-26 06:56] LABS: Basophils # (A) 0.1 k/uL (0-0.2); Basophils % (A) 0 %; Eosinophils # (A) 0.2 k/uL (0-0.7); Eosinophils % (A) 1 %; HCT 49.8 % (39.0-53.0); HGB 16.1 gm/dL (13.0-17.5); Lymphocytes # (A) 1.4 k/uL (1.0-4.8); Lymphocytes % (A) 10 %; MCH 29.5 pg (25.0-35.0); MCHC 32.2 g/dL (31.0-37.0); MCV 91.4 fL (80.0-100.0); Mean Platelet Volume 7.7; Monocytes % (A) 8 %; Neutrophils # (A) 10.3 k/uL (1.3-7.7); Neutrophils % (A) 79 %; Platelet Count 177 k/uL (150-450); RBC 5.45 m/uL (4.30-5.90); RDW 13.9 % (11.5-15.5); WBC 13.1 k/uL (3.8-10.6)
[2024-09-26 07:13] LABS: ALT 27 U/L (4-49); African American GFR (CKD) 6 (>60 ml/min/1.73 sqM); Anion Gap 21 mmol/L; Calcium 8.5 mg/dL (8.4-10.2); Chloride 104 mmol/L (98-107); Glucose 142 mg/dL (74-99); Lipase 869 U/L (23-300); Non-African American GFR(CKD) 5 (>60 ml/min/1.73 sqM); Sodium 132 mmol/L (137-145)
[2024-09-26 07:29] LABS: Blood Urea Nitrogen 113 mg/dL (9-20); Carbon Dioxide 7 mmol/L (22-30)
[2024-09-26 07:30] LABS: AST 27 U/L (17-59); Albumin 4.4 g/dL (3.5-5.0); Potassium 5.1 mmol/L (3.5-5.1); Total Bilirubin 1.2 mg/dL (0.2-1.3); Total Protein 7.4 g/dL (6.3-8.2)
[2024-09-26 07:31] LABS: Alkaline Phosphatase 57 U/L (38-126); Magnesium 1.8 mg/dL (1.6-2.3)
[2024-09-26 07:31] LABS: Influenza A Not Detected (Not Detectd); Influenza B Not Detected (Not Detectd); RSV Not Detected (Not Detectd)
--- NOTE | 2024-09-26 08:21 | US ---
EXAMINATION TYPE: US kidneys/renal and bladder DATE OF EXAM: 09/26/2024 COMPARISON: CT 2023 CLINICAL INDICATION: Male, 64 years old with history of acute renal failure; Acute renal failure. TECHNIQUE: Grayscale imaging of the bilateral kidneys and urinary bladder: FINDINGS: EXAM MEASUREMENTS: Right Kidney: 11.9 x 6.7 x 5.9 cm Left Kidney: 12.0 x 6.4 x 6.4 cm Right Kidney: No hydronephrosis or masses seen Left Kidney: No hydronephrosis or masses seen. Appearance of probable column of Ralf. Bladder: Unable to visualize Bilateral Jets seen: No IMPRESSION: No evidence for obstructive uropathy or renal calculus. [facility], , 09/26/2024 8:18 AM
[2024-09-26 08:33] LABS: VBG PH 7.12 (7.31-7.41)
[2024-09-26] MEDS ORDERED: ACETAMINOPHEN TAB 325 MG TAB PO PRN (08:48)
[2024-09-26] MEDS ORDERED: ONDANSETRON 4 MG/2 ML VIAL IVP PRN (08:48)
[2024-09-26] MEDS ORDERED: NALOXONE 0.4 MG/ML 1 ML VIAL IV PRN (08:48)
[2024-09-26] MEDS ORDERED: DEXTROSE 50% SYRINGE 50 ML IVP PRN ×2 (09:09)
[2024-09-26] MEDS: SODIUM CHLORIDE 0.9% 1,000 ML IV ONE (09:51)
[2024-09-26] MEDS: DEXTROSE 5% IN WATER 1,000 ML with SODIUM BICARB (1 MEQ/ML) 150 ML IV SCH (10:06)
[2024-09-26 10:36] LABS: Phosphorus 6.6 mg/dL (2.5-4.5)
--- NOTE | 2024-09-26 11:32 | P.NPCON ---
History of Present Illness - Reason for Consult acute renal failure - History of Present Illness Reason for consultation: Acute kidney injury History of present illness: Patient is a 64-year-old male seen in new consultation for acute kidney injury. Creatinine 1.2-1.3 in July and October 2023 and up to 9.57 this admission. Patient states last Tuesday he became ill and started having multiple episodes of vomiting and diarrhea. Patient states oral intake for the last week has been poor and he is not able to keep anything down. He last had diarrhea this morning. He is noted to be quite acidotic with a bicarb level of 7. Denies use of nonsteroidals. Patient states he takes Ozempic but last took it 2 weeks ago. He denies history of diabetes. Denies history of coronary artery disease. Patient states urine output was very low but he noticed no hematuria. Does admit to chills but no fever. No chest pain or shortness of breath. He denies being around sick contacts. Tested negative for influenza, RSV and COVID. Vital signs are stable. General: No acute distress. HEENT: Head exam is unremarkable. LUNGS: No audible rhonchi or wheezes. HEART: Rate and Rhythm are regular. ABDOMEN: Obese, nontender. EXTREMITITES: No edema. Past Medical History Past Medical History: Diabetes Mellitus, Hyperlipidemia, Hypertension, Supraventricular Tachycardia (SVT) Additional Past Medical History / Comment(s): A1C now 5.4 ; diagnosed with SVT 6 months ago. 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 Past Anesthesia/Blood Transfusion Reactions: No Reported Reaction Past Psychological History: No Psychological Hx Reported Smoking Status: Never smoker Past Alcohol Use History: None Reported Past Drug Use History: None Reported - Past Family History Father Family Medical History: No Reported History Medications and Allergies Home Medications Medication Instructions Recorded Confirmed Type amLODIPine [Norvasc] 10 mg PO DAILY 07/22/23 09/26/24 History Dapagliflozin Propanediol [Farxiga] 10 mg PO DAILY 01/12/24 09/26/24 History Metoprolol Succinate (ER) [Toprol 50 mg PO DAILY 09/26/24 09/26/24 History Xl] Semaglutide [Ozempic] 1 mg SQ WE 09/26/24 09/26/24 History lisinopriL 40 mg PO DAILY 09/26/24 09/26/24 History Allergies Allergy/AdvReac Type Severity Reaction Status Date / Time No Known Allergies Allergy Verified 09/26/24 09:49 Physical Exam Vitals: Vital Signs Temp Pulse Resp BP Pulse Ox 09/26/24 08:00 67 22 100/60 99 09/26/24 07:35 64 22 107/53 98 09/26/24 06:50 66 18 90/53 95 09/26/24 06:47 70 18 83/54 95 09/26/24 06:29 97.7 F 09/26/24 06:09 97.2 F L 77 18 87/55 98 Intake and Output 09/25/24 09/26/24 09/26/24 22:59 06:59 14:59 Other: Weight 136.078 kg Results - Lab Results Most recent lab results Calcium 8.5 mg/dL (8.4-10.2) 09/26/24 06:36 Phosphorus 6.6 mg/dL (2.5-4.5) H 09/26/24 06:36 Magnesium 1.8 mg/dL (1.6-2.3) 09/26/24 06:36 09/26/24 06:34 09/26/24 06:36 Assessment and Plan Plan: Assessment: 1. Acute kidney injury secondary to ATN secondary to hypotension and h ypovolemia from vomiting and diarrhea and further worsen with the use of CARISSA inhibitor. Creatinine 9.57 on admission. No hydronephrosis noted on kidney ultrasound. Creatinine 1.2-1.3 in July and October 2023. 2. Nausea vomiting and diarrhea possibly gastroenteritis. 3. Benign hypertension. Blood pressure currently on the lower end. 4. Metabolic acidosis secondary to acute kidney injury and GI losses. Plan: Start bicarb drip at 100 cc an hour. He did receive 2-1/2 L of normal saline bolus in the ER. Hold all antihypertensives and also SGLT2 inhibitor. Insert Sawant catheter. Strict I's and O's. Avoid nephrotoxins. Continue to monitor renal function and urine output. Continue to assess daily for need for renal replacement therapy. Thank you for the consultation. I will continue to follow the patient with you during his hospital stay.
[2024-09-26 11:56] LABS: VBG PH 7.15 (7.31-7.41)
[2024-09-26 12:07] LABS: Glucose,Whole Blood 112 mg/dL (70-110)
[2024-09-26] MEDS: INSULIN LISPRO (HumaLOG) 100 UNIT/ML 10 mL VL SQ SCH (12:26)
--- NOTE | 2024-09-26 13:07 | P.HPIM ---
History of Present Illness H&P Date: 09/26/24 Patient is a 64-year-old male with past medical history of type II DM not on insulin, HTN, HLD, history of SVT. She presented to the ER on 09/26 with Nausea, Vomiting, Diarrhea started 1 week ago. Patient had significantly decreased oral intake but was trying to stay hydrated with Gatorade and water. Couple days ago he noted that his urine production has decreased significantly. He denies any fevers chills, shortness of breath, abdominal pain, chest pain. He denies any previous history of kidney disease. He is on Ozempic but today noticed his second weekly dose. On arrival afebrile with low blood pressure 83/54, satting well on room air, heart rate in 70s . CBC: 13.1, normal hemoglobin and platelet count, VBG with pH of 7.12, sodium 132, potassium 5.1, bicarb 7, BUN 113, creatinine 9.57, EGFR 5, glucose 142, LFTs normal, calcium, magnesium, total bilirubin, AST, ALT, ALP normal elevated lipase 869, viral panel negative Abdominal ultrasound showed no evidence of obstructive uropathy or renal calculus Patient was admitted for acute renal failure, nephrology consulted. Patient received 2 L of IVF boluses, was started on D5 sodium bicarb at 100 cc/h Pertinent positives and negatives as discussed in HPI, a complete review of systems was performed and all other systems are negative. Patient seen and examined at bedside. Vital signs reviewed General: nontoxic, no distress, appears at stated age Derm: warm, dry Head: atraumatic, normocephalic, symmetric Eyes: EOMI, no lid lag, anicteric sclera, pupils equal round reactive to light ENT: Nose and ears atraumatic Neck: No thyromegaly, supple Mouth: no lip lesion, mucus membranes moist Cardiovascular: S1S2 reg, no murmur, no edema Lungs: clear to auscultation bilateral, no rhonchi, no rales, no wheeze, no accessory muscle use Abdominal: soft, nontender to palpation, no guarding, no appreciable organomegaly Ext: no gross muscle atrophy, muscle strength muscle strength 5 out of 5 in all 4 extremities, no contractures Neuro: CN II-XII grossly intact Psych: Alert, oriented, appropriate affect Assessment/Plan: Acute renal failure Severe metabolic acidosis secondary to above Leukocytosis Hypotension -Nephrology consulted, appreciate recommendations -Continue IVF with D5 sodium bicarb at 100 cc/h -Repeat VBG and BMP were ordered -Monitor BMP, magnesium, phosphorus -Check CK, TSH -Strict intake output, Sawant in place -Holding home triamterene hydrochlorothiazide 37.5/25, Ozempic, metoprolol 25 twice daily, lisinopril 10 mg, Farxiga 10 daily, amlodipine 10 mg Type II DM -Holding the above medications, continue with SSI and Accu-Cheks Hypertension -Now hypotensive, holding home medications The patient is admitted with an anticipated [greater] than 2 midnight stay as [inpatient/] status for evaluation of acute renal failure CODE STATUSfull DVT prophylaxis: Heparin Anticipated discharge date: TBD Anticipated discharge place: [facility] A total of 40 minutes was spent on the care of this complex patient more than 50% of the time was spent in counseling and care coordination. Past Medical History Past Medical History: Diabetes Mellitus, Hyperlipidemia, Hypertension, Supraventricular Tachycardia (SVT) Additional Past Medical History / Comment(s): A1C now 5.4 ; diagnosed with SVT 6 months ago. 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 Past Anesthesia/Blood Transfusion Reactions: No Reported Reaction Past Psychological History: No Psychological Hx Reported Smoking Status: Never smoker Past Alcohol Use History: None Reported Past Drug Use History: None Reported - Past Family History Father Family Medical History: No Reported History Medications and Allergies Home Medications Medication Instructions Recorded Confirmed Type amLODIPine [Norvasc] 10 mg PO DAILY 07/22/23 09/26/24 History Dapagliflozin Propanediol [Farxiga] 10 mg PO DAILY 01/12/24 09/26/24 History Metoprolol Succinate (ER) [Toprol 50 mg PO DAILY 09/26/24 09/26/24 History Xl] Semaglutide [Ozempic] 1 mg SQ WE 09/26/24 09/26/24 History lisinopriL 40 mg PO DAILY 09/26/24 09/26/24 History Allergies Allergy/AdvReac Type Severity Reaction Status Date / Time No Known Allergies Allergy Verified 09/26/24 09:49 Physical Exam Vitals: Vital Signs Temp Pulse Resp BP Pulse Ox 09/26/24 08:00 67 22 100/60 99 09/26/24 07:35 64 22 107/53 98 09/26/24 06:50 66 18 90/53 95 09/26/24 06:47 70 18 83/54 95 09/26/24 06:29 97.7 F 09/26/24 06:09 97.2 F L 77 18 87/55 98 Intake and Output 09/25/24 09/26/24 09/26/24 22:59 06:59 14:59 Other: Weight 136.078 kg Results CBC & Chem 7: 09/26/24 06:34 09/26/24 06:36 Labs: Abnormal Lab Results - Last 24 Hours (Table) 09/26/24 09/26/24 09/26/24 Range/Units 06:34 06:36 08:16 WBC 13.1 H (3.8-10.6) k/uL Neutrophils # 10.3 H (1.3-7.7) k/uL VBG pH 7.12 L* (7.31-7.41) VBG pCO2 28 L (37-51) mmHg VBG HCO3 9 L* (24-28) mmol/L Sodium 132 L (137-145) mmol/L Carbon Dioxide 7 L* (22-30) mmol/L BUN 113 H* (9-20) mg/dL Creatinine 9.57 H* (0.66-1.25) mg/dL Glucose 142 H (74-99) mg/dL Lipase 869 H (23-300) U/L
[2024-09-26 13:31] LABS: African American GFR (CKD) 8 (>60 ml/min/1.73 sqM); Anion Gap 15 mmol/L; Calcium 6.8 mg/dL (8.4-10.2); Carbon Dioxide 16 mmol/L (22-30); Chloride 98 mmol/L (98-107); Glucose 394 mg/dL (74-99); Non-African American GFR(CKD) 7 (>60 ml/min/1.73 sqM); Potassium 3.5 mmol/L (3.5-5.1); Sodium 129 mmol/L (137-145)
[2024-09-26 13:40] LABS: Blood Urea Nitrogen 107 mg/dL (9-20)
[2024-09-26 14:00] LABS: Appearance,Urine Clear (Clear); Bacteria,Urine Rare /hpf; Bilirubin,Urine Negative (Negative); Blood,Urine Moderate (Negative); Color,Urine Light Yellow; Glucose,Urine (UA) Negative (Negative); Ketones,Urine Negative (Negative); Leukocyte Esterase,Urine Negative (Negative); Mucus,Urine Rare /hpf; Nitrite,Urine Negative (Negative); Protein,Urine Trace (Negative); RBC,Urine 3 /hpf (0-5); Specific Gravity,Urine 1.011 (1.001-1.035); Squamous Epithelial Cell,Urine <1 /hpf (0-4); Urobilinogen,Urine <2.0 mg/dL (<2.0); WBC,Urine 1 /hpf (0-5)
[2024-09-26 16:55] LABS: Glucose,Whole Blood 113 mg/dL (70-110)
[2024-09-26 20:52] LABS: Glucose,Whole Blood 121 mg/dL (70-110)
[2024-09-26] MEDS: HEPARIN SODIUM,PORCINE 5,000 UNIT/ML 1 ML VIAL SQ SCH (20:58)
[2024-09-26] MEDS: LORazepam 1 MG/0.5 ML VIAL IV PRN (22:49)
[2024-09-27 07:21] LABS: Glucose,Whole Blood 100 mg/dL (70-110)
[2024-09-27 08:47] LABS: Magnesium 1.7 mg/dL (1.5-2.4)
[2024-09-27 09:00] LABS: BUN/Creat Ratio 13.33 Ratio (12.00-20.00); Glucose 116 mg/dL (70-110)
[2024-09-27 09:01] LABS: ALT 23 U/L (10-49); AST 11 U/L (14-35); Albumin 3.7 g/dL (3.8-4.9); Albumin/Globulin Ratio 1.61 Ratio (1.60-3.17); Alkaline Phosphatase 73 U/L (41-126); Calcium 7.9 mg/dL (8.7-10.3); Carbon Dioxide 10.8 mmol/L (21.6-31.8); Chloride 106 mmol/L (96-109); Globulin 2.3 g/dL (1.6-3.3); Potassium 3.7 mmol/L (3.5-5.5); Sodium 134 mmol/L (135-145); Total Bilirubin 0.4 mg/dL (0.3-1.2)
[2024-09-27 09:10] LABS: Basophils # (A) 0.03 X 10*3/uL (0.00-0.10); Basophils % (A) 0.3 %; Eosinophils # (A) 0.13 X 10*3/uL (0.04-0.35); Eosinophils % (A) 1.4 %; HCT 43.8 % (39.6-50.0); HGB 14.4 g/dL (13.0-17.0); Lymphocytes % (A) 14.5 %; MCH 29.1 pg (27.0-32.0); MCHC 32.9 g/dL (32.0-37.0); MCV 88.5 FL (80.0-97.0); Mean Platelet Volume 10.7 FL (9.5-12.2); Monocytes # (A) 1.27 X 10*3/uL (0.20-1.00); Monocytes % (A) 14.1 %; NRBC Per 100 WBC 0 X 10*3/uL (0.00-0.01); Neutrophils # (A) 6.22 X 10*3/uL (1.80-7.70); Neutrophils % (A) 69.4 %; Platelet Count 156 X 10*3/uL (140-440); RBC 4.95 X 10*6/uL (4.40-5.60); RDW 14.4 % (11.5-14.5); WBC 8.98 X 10*3/uL (4.50-10.00)
--- NOTE | 2024-09-27 10:43 | P.PN ---
Subjective Patient is seen in follow-up for acute kidney injury. Has a Sawant catheter for urinary retention. Currently on bicarb drip. Nonoliguric. Oral intake is good. Vital signs are stable. General: No acute distress. HEENT: Head exam is unremarkable. LUNGS: No audible rhonchi or wheezes. HEART: Rate and Rhythm are regular. ABDOMEN: Obese, nontender. EXTREMITITES: No edema. Objective - Vital Signs Vital signs: Vital Signs Temp 98.3 F 09/27/24 07:10 Pulse 72 09/27/24 07:10 Resp 17 09/27/24 07:10 BP 120/61 09/27/24 07:10 Pulse Ox 99 09/27/24 07:10 FiO2 Intake & Output 09/26/24 09/27/24 09/27/24 18:59 06:59 18:59 Intake Total 540 120 Output Total 500 1100 Balance -500 -560 120 Weight 136.078 kg Intake: Oral 540 120 Output: Urine 500 1100 Uretheral (Sawant) 500 Other: Voiding Method Toilet Indwelling Catheter # Bowel Movements 1 - Labs CBC & Chem 7: 09/27/24 03:56 09/27/24 03:56 Labs: Abnormal Lab Results - Last 24 Hours (Table) 09/26/24 09/26/24 09/26/24 Range/Units 06:34 11:34 11:34 Monocytes # (0.20-1.00) X 10*3/uL VBG pH 7.15 L* (7.31-7.41) VBG pCO2 28 L (37-51) mmHg VBG HCO3 10 L (24-28) mmol/L Sodium (137-145) mmol/L Carbon Dioxide (22-30) mmol/L Anion Gap (4.00-12.00) mmol/L BUN (9-20) mg/dL Creatinine (0.66-1.25) mg/dL Est GFR (CKD-EPI) (>=60) Glucose (74-99) mg/dL POC Glucose (mg/dL) (70-110) mg/dL Calcium (8.4-10.2) mg/dL Phosphorus (2.4-5.1) mg/dL AST (14-35) U/L Total Protein (6.2-8.2) g/dL Albumin (3.8-4.9) g/dL Procalcitonin 0.94 H (0.02-0.50) ng/mL Urine Protein Trace H (Negative) Urine Blood Moderate H (Negative) Urine Bacteria Rare H (None) /hpf Urine Mucus Rare H (None) /hpf 09/26/24 09/26/24 09/26/24 Range/Units 12:04 13:19 16:53 Monocytes # (0.20-1.00) X 10*3/uL VBG pH (7.31-7.41) VBG pCO2 (37-51) mmHg VBG HCO3 (24-28) mmol/L Sodium 129 L (137-145) mmol/L Carbon Dioxide 16 L (22-30) mmol/L Anion Gap (4.00-12.00) mmol/L BUN 107 H* (9-20) mg/dL Creatinine 7.69 H* (0.66-1.25) mg/dL Est GFR (CKD-EPI) (>=60) Glucose 394 H (74-99) mg/dL POC Glucose (mg/dL) 112 H 113 H (70-110) mg/dL Calcium 6.8 L (8.4-10.2) mg/dL Phosphorus (2.4-5.1) mg/dL AST (14-35) U/L Total Protein (6.2-8.2) g/dL Albumin (3.8-4.9) g/dL Procalcitonin (0.02-0.50) ng/mL Urine Protein (Negative) Urine Blood (Negative) Urine Bacteria (None) /hpf Urine Mucus (None) /hpf 09/26/24 09/27/24 09/27/24 Range/Units 20:51 03:56 03:56 Monocytes # 1.27 H (0.20-1.00) X 10*3/uL VBG pH (7.31-7.41) VBG pCO2 (37-51) mmHg VBG HCO3 (24-28) mmol/L Sodium 134 L (137-145) mmol/L Carbon Dioxide (22-30) mmol/L Anion Gap 17.20 H (4.00-12.00) mmol/L BUN 112.0 H (9-20) mg/dL Creatinine 8.4 H (0.66-1.25) mg/dL Est GFR (CKD-EPI) 7 L (>=60) Glucose 116 H (74-99) mg/dL POC Glucose (mg/dL) 121 H (70-110) mg/dL Calcium 7.9 L (8.4-10.2) mg/dL Phosphorus (2.4-5.1) mg/dL AST 11 L (14-35) U/L Total Protein 6.0 L (6.2-8.2) g/dL Albumin 3.7 L (3.8-4.9) g/dL Procalcitonin (0.02-0.50) ng/mL Urine Protein (Negative) Urine Blood (Negative) Urine Bacteria (None) /hpf Urine Mucus (None) /hpf 09/27/24 Range/Units 03:56 Monocytes # (0.20-1.00) X 10*3/uL VBG pH (7.31-7.41) VBG pCO2 (37-51) mmHg VBG HCO3 (24-28) mmol/L Sodium (137-145) mmol/L Carbon Dioxide (22-30) mmol/L Anion Gap (4.00-12.00) mmol/L BUN (9-20) mg/dL Creatinine (0.66-1.25) mg/dL Est GFR (CKD-EPI) (>=60) Glucose (74-99) mg/dL POC Glucose (mg/dL) (70-110) mg/dL Calcium (8.4-10.2) mg/dL Phosphorus 6.1 H (2.4-5.1) mg/dL AST (14-35) U/L Total Protein (6.2-8.2) g/dL Albumin (3.8-4.9) g/dL Procalcitonin (0.02-0.50) ng/mL Urine Protein (Negative) Urine Blood (Negative) Urine Bacteria (None) /hpf Urine Mucus (None) /hpf Assessment and Plan Plan: Assessment: 1. Acute kidney injury secondary to ATN secondary to hypotension and hypovolemia from vomiting and diarrhea and further worsen with the use of CARISSA inhibitor. Also component of urinary retention. Creatinine 9.57 on admission - 8.4 today.. No hydronephrosis noted on kidney ultrasound. Creatinine 1.2-1.3 in July and October 2023. 2. Nausea vomiting and diarrhea possibly gastroenteritis. Improved. Tolerating oral intake. 3. Benign hypertension. Controlled. 4. Metabolic acidosis secondary to acute kidney injury and GI losses. Improving with bicarb drip. 5. Hypovolemic hyponatremia improving with IV hydration. 6. Urinary retention. 7. Hyperphosphatemia secondary to acute kidney injury. Expect improvement with improved urine output. Plan: Maintain bicarb drip for now. Continue to hold all antihypertensives and also SGLT2 inhibitor. Maintain Sawant catheter. Strict I's and O's. Avoid nephrotoxins. Continue to monitor renal function and urine output. Continue to assess daily for need for renal replacement therapy. Add Flomax.
[2024-09-27] MEDS: POTASSIUM CHLORIDE ER 20 MEQ TAB.ER PO STA (11:16)
[2024-09-27] MEDS: TAMSULOSIN 0.4 MG CAP.ER.24H PO SCH (11:16)
[2024-09-27 12:22] LABS: Glucose,Whole Blood 109 mg/dL (70-110)
--- NOTE | 2024-09-27 12:24 | P.PN ---
Subjective Progress Note Date: 09/27/24 Hospital Course: Patient is a 64-year-old male with past medical history of type II DM not on i nsulin, HTN, HLD, history of SVT. She presented to the ER on 09/26 with Nausea, Vomiting, Diarrhea started 1 week ago. Patient had significantly decreased oral intake but was trying to stay hydrated with Gatorade and water. Couple days ago he noted that his urine production has decreased significantly. He denies any fevers chills, shortness of breath, abdominal pain, chest pain. He denies any previous history of kidney disease. He is on Ozempic but today noticed his second weekly dose. On arrival afebrile with low blood pressure 83/54, satting well on room air, heart rate in 70s . CBC: 13.1, normal hemoglobin and platelet count, VBG with pH of 7.12, sodium 132, potassium 5.1, bicarb 7, BUN 113, creatinine 9.57, EGFR 5, glucose 142, LFTs normal, calcium, magnesium, total bilirubin, AST, ALT, ALP normal elevated lipase 869, viral panel negative Abdominal ultrasound showed no evidence of obstructive uropathy or renal calculus Patient was admitted for acute renal failure, nephrology consulted. Patient received 2 L of IVF boluses, was started on D5 sodium bicarb at 100 cc/h Sawant catheter was placed for urinary retention, patient has good appetite, urine [id number] after admission, mild improvement in creatinine as of , patient to be continued on bicarb drip Pertinent Imaging: No new imaging Subjective: Feeling well, denies any complaints Pertinent positives and negatives as discussed above, a complete review of systems was performed and all other systems are negative. Vitals Signs Reviewed. General: [nontoxic], [no distress], [appears at stated age], obese Derm: [warm], [dry] Head: [atraumatic], [normocephalic], [symmetric] Eyes: [EOMI], [no lid lag], [anicteric sclera] Mouth: [no lip lesion], [mucus membranes moist] Cardiovascular: [S1S2 reg], [no murmur] Lungs: [CTA bilateral], [no rhonchi, no rales] , [no accessory muscle use] Abdominal: [soft], [ nontender to palpation], [no guarding], [no appreciable organomegaly] Ext: [no gross muscle atrophy], [no edema], [no contractures] Neuro: [ CN II-XI grossly intact], [no focal neuro deficits] Psych: [Alert], [oriented], [appropriate affect] Data Reviewed Today: Pertinent Labs: Unremarkable CBC, sodium 134, creatinine 8.4, BUN 112, glucose 116, A1c 5.5 Assessment and Plan:Acute renal failure Severe metabolic acidosis secondary to above Hyponatremia Leukocytosis Hypotension, resolved Urinary retention -Nephrology consulted, appreciate recommendations -Continue IVF with D5 sodium bicarb at 100 cc/h -Repeat VBG and BMP were ordered -Monitor BMP, magnesium, phosphorus -Check CK, TSH -Strict intake output, Sawant in place -Holding home triamterene hydrochlorothiazide 37.5/25, Ozempic, metoprolol 25 twice daily, lisinopril 10 mg, Farxiga 10 daily, amlodipine 10 mg Type II DM -Holding the above medications, continue with SSI and Accu-Cheks -A1c 5.5 Hypertension -normotensive, holding home medications CODE STATUSfull DVT prophylaxis: Heparin Anticipated discharge date: TBD Anticipated discharge place: home Objective - Vital Signs Vital signs: Vital Signs Temp 98.3 F 09/27/24 07:10 Pulse 72 09/27/24 07:10 Resp 17 09/27/24 07:10 BP 120/61 09/27/24 07:10 Pulse Ox 99 09/27/24 07:10 FiO2 Intake & Output 09/26/24 09/27/24 09/27/24 18:59 06:59 18:59 Intake Total 540 120 Output Total 500 1100 Balance -500 -560 120 Weight 136.078 kg Intake: Oral 540 120 Output: Urine 500 1100 Uretheral (Sawant) 500 Other: Voiding Method Toilet Toilet Indwelling Catheter Indwelling Catheter # Bowel Movements 1 - Labs CBC & Chem 7: 09/27/24 03:56 09/27/24 03:56 Labs: Abnormal Lab Results - Last 24 Hours (Table) 09/26/24 09/26/24 09/26/24 Range/Units 06:34 11:34 13:19 Monocytes # (0.20-1.00) X 10*3/uL Sodium 129 L (137-145) mmol/L Carbon Dioxide 16 L (22-30) mmol/L Anion Gap (4.00-12.00) mmol/L BUN 107 H* (9-20) mg/dL Creatinine 7.69 H* (0.66-1.25) mg/dL Est GFR (CKD-EPI) (>=60) Glucose 394 H (74-99) mg/dL POC Glucose (mg/dL) (70-110) mg/dL Calcium 6.8 L (8.4-10.2) mg/dL Phosphorus (2.4-5.1) mg/dL AST (14-35) U/L Total Protein (6.2-8.2) g/dL Albumin (3.8-4.9) g/dL Procalcitonin 0.94 H (0.02-0.50) ng/mL Urine Protein Trace H (Negative) Urine Blood Moderate H (Negative) Urine Bacteria Rare H (None) /hpf Urine Mucus Rare H (None) /hpf 09/26/24 09/26/24 09/27/24 Range/Units 16:53 20:51 03:56 Monocytes # (0.20-1.00) X 10*3/uL Sodium 134 L (137-145) mmol/L Carbon Dioxide (22-30) mmol/L Anion Gap 17.20 H (4.00-12.00) mmol/L BUN 112.0 H (9-20) mg/dL Creatinine 8.4 H (0.66-1.25) mg/dL Est GFR (CKD-EPI) 7 L (>=60) Glucose 116 H (74-99) mg/dL POC Glucose (mg/dL) 113 H 121 H (70-110) mg/dL Calcium 7.9 L (8.4-10.2) mg/dL Phosphorus (2.4-5.1) mg/dL AST 11 L (14-35) U/L Total Protein 6.0 L (6.2-8.2) g/dL Albumin 3.7 L (3.8-4.9) g/dL Procalcitonin (0.02-0.50) ng/mL Urine Protein (Negative) Urine Blood (Negative) Urine Bacteria (None) /hpf Urine Mucus (None) /hpf 09/27/24 09/27/24 Range/Units 03:56 03:56 Monocytes # 1.27 H (0.20-1.00) X 10*3/uL Sodium (137-145) mmol/L Carbon Dioxide (22-30) mmol/L Anion Gap (4.00-12.00) mmol/L BUN (9-20) mg/dL Creatinine (0.66-1.25) mg/dL Est GFR (CKD-EPI) (>=60) Glucose (74-99) mg/dL POC Glucose (mg/dL) (70-110) mg/dL Calcium (8.4-10.2) mg/dL Phosphorus 6.1 H (2.4-5.1) mg/dL AST (14-35) U/L Total Protein (6.2-8.2) g/dL Albumin (3.8-4.9) g/dL Procalcitonin (0.02-0.50) ng/mL Urine Protein (Negative) Urine Blood (Negative) Urine Bacteria (None) /hpf Urine Mucus (None) /hpf
[2024-09-27] MEDS: LACTATED RINGERS 500 ML IV ONE (13:11)
[2024-09-27 17:14] LABS: Glucose,Whole Blood 120 mg/dL (70-110)
[2024-09-27 20:45] LABS: Glucose,Whole Blood 127 mg/dL (70-110)
[2024-09-28 06:55] LABS: Glucose,Whole Blood 131 mg/dL (70-110)
[2024-09-28 08:12] LABS: ALT 20 U/L (10-49); AST 9 U/L (14-35); Albumin 3.6 g/dL (3.8-4.9); Albumin/Globulin Ratio 1.64 Ratio (1.60-3.17); Alkaline Phosphatase 69 U/L (41-126); BUN/Creat Ratio 17.03 Ratio (12.00-20.00); Carbon Dioxide 15.1 mmol/L (21.6-31.8); Chloride 108 mmol/L (96-109); Globulin 2.2 g/dL (1.6-3.3); Glucose 99 mg/dL (70-110); Magnesium 1.8 mg/dL (1.5-2.4); Phosphorus 4.9 mg/dL (2.4-5.1); Potassium 3.6 mmol/L (3.5-5.5); Sodium 139 mmol/L (135-145); Total Bilirubin 0.4 mg/dL (0.3-1.2); Total Protein 5.8 g/dL (6.2-8.2)
[2024-09-28] MEDS: POTASSIUM CHLORIDE ER 20 MEQ TAB.ER PO STA (08:48)
[2024-09-28 09:09] LABS: Basophils # (A) 0.04 X 10*3/uL (0.00-0.10); Basophils % (A) 0.5 %; Eosinophils # (A) 0.11 X 10*3/uL (0.04-0.35); Eosinophils % (A) 1.4 %; HGB 13.6 g/dL (13.0-17.0); Lymphocytes # (A) 1.55 X 10*3/uL (0.90-5.00); Lymphocytes % (A) 19.9 %; MCH 29.4 pg (27.0-32.0); MCV 86.4 FL (80.0-97.0); Mean Platelet Volume 11.1 FL (9.5-12.2); Monocytes # (A) 1.29 X 10*3/uL (0.20-1.00); Monocytes % (A) 16.5 %; NRBC Per 100 WBC 0 X 10*3/uL (0.00-0.01); Neutrophils # (A) 4.77 X 10*3/uL (1.80-7.70); Neutrophils % (A) 61.2 %; Platelet Count 144 X 10*3/uL (140-440); RBC 4.63 X 10*6/uL (4.40-5.60); RDW 14.5 % (11.5-14.5)
--- NOTE | 2024-09-28 11:22 | P.PN ---
Subjective Patient is seen in follow-up for acute kidney injury. Has a Sawant catheter for urinary retention. Currently on bicarb drip. Nonoliguric. Oral intake is good. Having loose bowel movements. Vital signs are stable. General: No acute distress. HEENT: Head exam is unremarkable. LUNGS: No audible rhonchi or wheezes. HEART: Rate and Rhythm are regular. ABDOMEN: Obese, nontender. EXTREMITITES: Trace edema. Objective - Vital Signs Vital signs: Vital Signs Temp 98.1 F 09/28/24 07:45 Pulse 81 09/28/24 07:45 Resp 17 09/28/24 07:45 BP 102/62 09/28/24 07:45 Pulse Ox 97 09/28/24 07:45 FiO2 Intake & Output 09/27/24 09/28/24 09/28/24 18:59 06:59 18:59 Intake Total 780 1680 1070 Output Total 1520 1300 1000 Balance -740 380 70 Intake: Intake, IV Titration 1200 Amount Dextrose 5% in Water 1, 1200 000 ml @ 100 mls/hr IV . [id number] DAVY with Sodium Bicarb (1 Meq/ml) 150 ml Rx#:[id number] Oral 231 [id number] Output: Urine 1520 1300 1000 Other: Voiding Method Toilet Toilet Indwelling Catheter Indwelling Catheter - Labs CBC & Chem 7: 09/28/24 04:07 09/28/24 04:07 Labs: Abnormal Lab Results - Last 24 Hours (Table) 09/27/24 09/27/24 09/28/24 Range/Units 17:12 20:43 04:07 Monocytes # 1.29 H (0.20-1.00) X 10*3/uL Carbon Dioxide (21.6-31.8) mmol/L Anion Gap (4.00-12.00) mmol/L BUN (9.0-27.0) mg/dL Creatinine (0.6-1.5) mg/dL Est GFR (CKD-EPI) (>=60) POC Glucose (mg/dL) 120 H 127 H (70-110) mg/dL Calcium (8.7-10.3) mg/dL AST (14-35) U/L Total Protein (6.2-8.2) g/dL Albumin (3.8-4.9) g/dL 09/28/24 09/28/24 Range/Units 04:07 06:53 Monocytes # (0.20-1.00) X 10*3/uL Carbon Dioxide 15.1 L (21.6-31.8) mmol/L Anion Gap 15.90 H (4.00-12.00) mmol/L BUN 109.0 H (9.0-27.0) mg/dL Creatinine 6.4 H (0.6-1.5) mg/dL Est GFR (CKD-EPI) 9 L (>=60) POC Glucose (mg/dL) 131 H (70-110) mg/dL Calcium 8.0 L (8.7-10.3) mg/dL AST 9 L (14-35) U/L Total Protein 5.8 L (6.2-8.2) g/dL Albumin 3.6 L (3.8-4.9) g/dL Assessment and Plan Plan: Assessment: 1. Acute kidney injury secondary to ATN secondary to hypotension and hypovolemia from vomiting and diarrhea and further worsen with the use of CARISSA inhibitor. Also component of urinary retention. Creatinine 9.57 on admission - 6.4 today. No hydronephrosis noted on kidney ultrasound. Creatinine 1.2-1.3 in July and October 2023. 2. Nausea vomiting and diarrhea possibly gastroenteritis. Improved. Tolerating oral intake. 3. Benign hypertension. Blood pressure on the lower end. 4. Metabolic acidosis secondary to acute kidney injury and GI losses. On bicarb drip. 5. Hypovolemic hyponatremia improving with IV hydration. 6. Urinary retention. On Flomax. Has Sawant catheter. 7. Hyperphosphatemia secondary to acute kidney injury. Improved. Plan: Maintain bicarb drip for now. Replace potassium. Continue to hold all antihypertensives and also SGLT2 inhibitor. Maintain Sawant catheter. Strict I's and O's. Avoid nephrotoxins. Continue to monitor renal function and urine output. Continue to assess daily for need for renal replacement therapy. No urgency at this time.
[2024-09-28 11:58] LABS: Glucose,Whole Blood 139 mg/dL (70-110)
[2024-09-28] MEDS: SODIUM BICARB 8.4% 50 ML SYR (1 MEQ/ML) IV STA (12:40)
--- NOTE | 2024-09-28 13:16 | P.PN ---
Subjective Progress Note Date: 09/28/24 Hospital Course: Patient is a 64-year-old male with past medical history of type II DM not on i nsulin, HTN, HLD, history of SVT. She presented to the ER on 09/26 with Nausea, Vomiting, Diarrhea started 1 week ago. Patient had significantly decreased oral intake but was trying to stay hydrated with Gatorade and water. Couple days ago he noted that his urine production has decreased significantly. He denies any fevers chills, shortness of breath, abdominal pain, chest pain. He denies any previous history of kidney disease. He is on Ozempic but today noticed his second weekly dose. On arrival afebrile with low blood pressure 83/54, satting well on room air, heart rate in 70s . CBC: 13.1, normal hemoglobin and platelet count, VBG with pH of 7.12, sodium 132, potassium 5.1, bicarb 7, BUN 113, creatinine 9.57, EGFR 5, glucose 142, LFTs normal, calcium, magnesium, total bilirubin, AST, ALT, ALP normal elevated lipase 869, viral panel negative Abdominal ultrasound showed no evidence of obstructive uropathy or renal calculus Patient was admitted for acute renal failure, nephrology consulted. Patient received 2 L of IVF boluses, was started on D5 sodium bicarb at 100 cc/h Sawant catheter was placed for urinary retention, patient has good appetite, he is nonoliguric, was started on Flomax for urinary retention, fluid to be continued, bicarb infusion to be continued, creatinine is improving Pertinent Imaging: No new imaging Subjective: Feeling well, denies any complaints. Mentioned that he actually feels even better than yesterday Pertinent positives and negatives as discussed above, a complete review of systems was performed and all other systems are negative. Vitals Signs Reviewed. General: [nontoxic], [no distress], [appears at stated age], obese Derm: [warm], [dry] Head: [atraumatic], [normocephalic], [symmetric] Eyes: [EOMI], [no lid lag], [anicteric sclera] Mouth: [no lip lesion], [mucus membranes moist] Cardiovascular: [S1S2 reg], [no murmur] Lungs: [CTA bilateral], [no rhonchi, no rales] , [no accessory muscle use] Abdominal: [soft], [ nontender to palpation], [no guarding], [no appreciable organomegaly] Ext: [no gross muscle atrophy], [no edema], [no contractures] Neuro: [ CN II-XI grossly intact], [no focal neuro deficits] Psych: [Alert], [oriented], [appropriate affect] Data Reviewed Today: Pertinent Labs: Unremarkable CBC, sodium 139, potassium 3.6, creatinine 6.4, bicarb 15.1, glucose is controlled Assessment and Plan:Acute renal failure Severe metabolic acidosis secondary to above Hyponatremia Leukocytosis Hypotension, resolved Urinary retention -Nephrology consulted, appreciate recommendations -Continue IVF with D5 sodium bicarb at 100 cc/h -Monitor BMP, magnesium, phosphorus -Strict intake output, Sawant in place -Holding home triamterene hydrochlorothiazide 37.5/25, Ozempic, metoprolol 25 twice daily, lisinopril 10 mg, Farxiga 10 daily, amlodipine 10 mg Type II DM -Holding the above medications, continue with SSI and Accu-Cheks -A1c 5.5 Hypertension -normotensive, holding home medications CODE STATUSfull DVT prophylaxis: Heparin Anticipated discharge date: TBD Anticipated discharge place: home Objective - Vital Signs Vital signs: Vital Signs Temp 97.6 F 09/28/24 12:00 Pulse 96 09/28/24 12:00 Resp 19 09/28/24 12:00 BP 95/49 09/28/24 12:00 Pulse Ox 99 09/28/24 12:00 FiO2 Intake & Output 09/27/24 09/28/24 09/28/24 18:59 06:59 18:59 Intake Total 780 1680 1070 Output Total 1520 1300 1000 Balance -740 380 70 Intake: Intake, IV Titration 1200 Amount Dextrose 5% in Water 1, 1200 000 ml @ 100 mls/hr IV . [id number] DAVY with Sodium Bicarb (1 Meq/ml) 150 ml Rx#:[id number] Oral [id number] Output: Urine 1520 1300 1000 Other: Voiding Method Toilet Toilet Indwelling Catheter Indwelling Catheter Indwelling Catheter - Labs CBC & Chem 7: 09/28/24 04:07 09/28/24 04:07 Labs: Abnormal Lab Results - Last 24 Hours (Table) 09/27/24 09/27/2425 Range/Units 17:12 20:43 04:07 Monocytes # 1.29 H (0.20-1.00) X 10*3/uL Carbon Dioxide (21.6-31.8) mmol/L Anion Gap (4.00-12.00) mmol/L BUN (9.0-27.0) mg/dL Creatinine (0.6-1.5) mg/dL Est GFR (CKD-EPI) (>=60) POC Glucose (mg/dL) 120 H 127 H (70-110) mg/dL Calcium (8.7-10.3) mg/dL AST (14-35) U/L Total Protein (6.2-8.2) g/dL Albumin (3.8-4.9) g/dL 09/28/24 09/28/24 09/28/24 Range/Units 04:07 06:53 11:57 Monocytes # (0.20-1.00) X 10*3/uL Carbon Dioxide 15.1 L (21.6-31.8) mmol/L Anion Gap 15.90 H (4.00-12.00) mmol/L BUN 109.0 H (9.0-27.0) mg/dL Creatinine 6.4 H (0.6-1.5) mg/dL Est GFR (CKD-EPI) 9 L (>=60) POC Glucose (mg/dL) 131 H 139 H (70-110) mg/dL Calcium 8.0 L (8.7-10.3) mg/dL AST 9 L (14-35) U/L Total Protein 5.8 L (6.2-8.2) g/dL Albumin 3.6 L (3.8-4.9) g/dL
[2024-09-28 17:07] LABS: Glucose,Whole Blood 120 mg/dL (70-110)
[2024-09-28 20:24] LABS: Glucose,Whole Blood 124 mg/dL (70-110)
--- NOTE | 2024-09-28 20:54 | P.GSCN ---
History of Present Illness Consult date: 09/28/24 Reason for Consult: Urinary retention Requesting physician: Tristen Rivera History of present illness: The patient is a 64-year-old white male admitted September 26, 2024 with nausea, vomiting, and diarrhea. He was found to have renal failure presumed to be due to hypovolemia. Renal ultrasound performed at the time of admission showed no evidence of hydronephrosis. A Sawant catheter has been placed for urinary retention. Renal function was normal in October 2023, and is gradually improving since he was admitted. He is currently receiving tamsulosin, but did not take it prior to admission. He states that he has been treated for 1 UTI in the past, and that he has no prior history of urolithiasis. As a baseline, he denies voiding difficulty. Specifically, he states that his urinary stream is good, and that he denies dysuria and hematuria. He reports nocturia x 1. Review of Systems - Constitutional Reports weight loss - Cardiovascular Reports high blood pressure - Gastrointestinal Reports diarrhea, Reports nausea, Reports vomiting - Genitourinary Reports as per HPI Past Medical History Past Medical History: Diabetes Mellitus, Hyperlipidemia, Hypertension, Supraventricular Tachycardia (SVT) Additional Past Medical History / Comment(s): A1C now 5.4 ; diagnosed with SVT 6 months ago. 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 Past Anesthesia/Blood Transfusion Reactions: No Reported Reaction Past Psychological History: No Psychological Hx Reported Smoking Status: Never smoker Past Alcohol Use History: None Reported Past Drug Use History: None Reported - Past Family History Father Family Medical History: No Reported History Medications and Allergies Home Medications Medication Instructions Recorded Confirmed Type amLODIPine [Norvasc] 10 mg PO DAILY 07/22/23 09/26/24 History Dapagliflozin Propanediol [Farxiga] 10 mg PO DAILY 01/12/24 09/26/24 History Metoprolol Succinate (ER) [Toprol 50 mg PO DAILY 09/26/24 09/26/24 History Xl] Semaglutide [Ozempic] 1 mg SQ WE 09/26/24 09/26/24 History lisinopriL 40 mg PO DAILY 09/26/24 09/26/24 History Allergies Allergy/AdvReac Type Severity Reaction Status Date / Time No Known Allergies Allergy Verified 09/26/24 09:49 Surgical - Exam Vital Signs Temp Pulse Resp BP Pulse Ox 97.2 F L 77 18 87/55 98 09/26/24 06:09 09/26/24 06:09 09/26/24 06:09 09/26/24 06:09 09/26/24 06:09 - General well developed, well nourished, no distress - Respiratory normal respiratory effort - Abdomen Abdomen: soft, non tender, no guarding, no rigid, no rebound - Genitourinary normal penis with no external lesions, testicles non-tender - Rectum Rectum: normal sphincter tone, no masses, other (Prostate over 50 g in size, smooth in consistency) - Psychiatric oriented to time, oriented to person, oriented to place, speech is normal, memory intact Results - Labs 09/28/24 04:07 09/28/24 04:07 Abnormal Lab Results - Last 24 Hours (Table) 09/27/24 09/27/24 09/28/24 Range/Units 17:12 20:43 04:07 Monocytes # 1.29 H (0.20-1.00) X 10*3/uL Carbon Dioxide (21.6-31.8) mmol/L Anion Gap (4.00-12.00) mmol/L BUN (9.0-27.0) mg/dL Creatinine (0.6-1.5) mg/dL Est GFR (CKD-EPI) (>=60) POC Glucose (mg/dL) 120 H 127 H (70-110) mg/dL Calcium (8.7-10.3) mg/dL AST (14-35) U/L Total Protein (6.2-8.2) g/dL Albumin (3.8-4.9) g/dL 09/28/24 09/28/24 09/28/24 Range/Units 04:07 06:53 11:57 Monocytes # (0.20-1.00) X 10*3/uL Carbon Dioxide 15.1 L (21.6-31.8) mmol/L Anion Gap 15.90 H (4.00-12.00) mmol/L BUN 109.0 H (9.0-27.0) mg/dL Creatinine 6.4 H (0.6-1.5) mg/dL Est GFR (CKD-EPI) 9 L (>=60) POC Glucose (mg/dL) 131 H 139 H (70-110) mg/dL Calcium 8.0 L (8.7-10.3) mg/dL AST 9 L (14-35) U/L Total Protein 5.8 L (6.2-8.2) g/dL Albumin 3.6 L (3.8-4.9) g/dL Diabetes panel 09/28/24 Range/Units 04:07 Sodium 139 (135-145) mmol/L Potassium 3.6 (3.5-5.5) mmol/L Chloride 108 (96-109) mmol/L Carbon Dioxide 15.1 L (21.6-31.8) mmol/L BUN 109.0 H (9.0-27.0) mg/dL Creatinine 6.4 H (0.6-1.5) mg/dL Glucose 99 (70-110) mg/dL Calcium 8.0 L (8.7-10.3) mg/dL AST 9 L (14-35) U/L ALT 20 (10-49) U/L Alkaline Phosphatase 69 (41-126) U/L Total Protein 5.8 L (6.2-8.2) g/dL Albumin 3.6 L (3.8-4.9) g/dL Calcium panel 09/28/24 Range/Units 04:07 Calcium 8.0 L (8.7-10.3) mg/dL Phosphorus 4.9 (2.4-5.1) mg/dL Albumin 3.6 L (3.8-4.9) g/dL Pituitary panel 09/28/24 Range/Units 04:07 Sodium 139 (135-145) mmol/L Potassium 3.6 (3.5-5.5) mmol/L Chloride 108 (96-109) mmol/L Carbon Dioxide 15.1 L (21.6-31.8) mmol/L BUN 109.0 H (9.0-27.0) mg/dL Creatinine 6.4 H (0.6-1.5) mg/dL Glucose 99 (70-110) mg/dL Calcium 8.0 L (8.7-10.3) mg/dL Adrenal panel 09/28/24 Range/Units 04:07 Sodium 139 (135-145) mmol/L Potassium 3.6 (3.5-5.5) mmol/L Chloride 108 (96-109) mmol/L Carbon Dioxide 15.1 L (21.6-31.8) mmol/L BUN 109.0 H (9.0-27.0) mg/dL Creatinine 6.4 H (0.6-1.5) mg/dL Glucose 99 (70-110) mg/dL Calcium 8.0 L (8.7-10.3) mg/dL Total Bilirubin 0.4 (0.3-1.2) mg/dL AST 9 L (14-35) U/L ALT 20 (10-49) U/L Alkaline Phosphatase 69 (41-126) U/L Total Protein 5.8 L (6.2-8.2) g/dL Albumin 3.6 L (3.8-4.9) g/dL - Imaging US - kidney/bladder: report reviewed Assessment and Plan (1) Retention of urine, unspecified Current Visit: Yes Status: Acute Code(s): R33.9 - RETENTION OF URINE, UNSPECIFIED SNOMED Code(s): 261002146 Plan: Continue tamsulosin. Continue Sawant catheter. Remove Sawant catheter for voiding trial prior to discharge. Bladder scan should be utilized to assess bladder emptying, and the catheter should be replaced if he empties his bladder incompletely or is unable to void. Time with Patient: Greater than 30
[2024-09-29 07:08] LABS: Glucose,Whole Blood 114 mg/dL (70-110)
[2024-09-29 09:30] LABS: Basophils # (A) 0.02 X 10*3/uL (0.00-0.10); Basophils % (A) 0.3 %; Eosinophils # (A) 0.13 X 10*3/uL (0.04-0.35); Eosinophils % (A) 1.9 %; HCT 40.1 % (39.6-50.0); HGB 14.4 g/dL (13.0-17.0); Lymphocytes # (A) 1.47 X 10*3/uL (0.90-5.00); Lymphocytes % (A) 21.3 %; MCH 30.3 pg (27.0-32.0); MCHC 35.9 g/dL (32.0-37.0); MCV 84.4 FL (80.0-97.0); Mean Platelet Volume 10.6 FL (9.5-12.2); Monocytes # (A) 1.07 X 10*3/uL (0.20-1.00); Monocytes % (A) 15.5 %; NRBC Per 100 WBC 0 X 10*3/uL (0.00-0.01); Neutrophils # (A) 4.19 X 10*3/uL (1.80-7.70); Neutrophils % (A) 60.6 %; Platelet Count 148 X 10*3/uL (140-440); RBC 4.75 X 10*6/uL (4.40-5.60); RDW 13.9 % (11.5-14.5); WBC 6.91 X 10*3/uL (4.50-10.00)
[2024-09-29 09:31] LABS: Magnesium 1.6 mg/dL (1.5-2.4)
[2024-09-29 09:47] LABS: ALT 21 U/L (10-49); AST 15 U/L (14-35); Albumin 3.6 g/dL (3.8-4.9); Albumin/Globulin Ratio 1.57 Ratio (1.60-3.17); Alkaline Phosphatase 66 U/L (41-126); BUN/Creat Ratio 23.94 Ratio (12.00-20.00); Blood Urea Nitrogen 83.8 mg/dL (9.0-27.0); Calcium 8.3 mg/dL (8.7-10.3); Carbon Dioxide 22.3 mmol/L (21.6-31.8); Chloride 108 mmol/L (96-109); Globulin 2.3 g/dL (1.6-3.3); Glucose 114 mg/dL (70-110); Phosphorus 3.3 mg/dL (2.4-5.1); Potassium 3.5 mmol/L (3.5-5.5); Sodium 144 mmol/L (135-145); Total Bilirubin 0.6 mg/dL (0.3-1.2); Total Protein 5.9 g/dL (6.2-8.2)
--- NOTE | 2024-09-29 10:53 | P.PN ---
Subjective Patient is seen in follow-up for acute kidney injury. Has a Sawant catheter for urinary retention. Currently on bicarb drip. Acidosis improved. No further loose bowel movements. Nonoliguric. Vital signs are stable. General: No acute distress. HEENT: Head exam is unremarkable. LUNGS: No audible rhonchi or wheezes. HEART: Rate and Rhythm are regular. ABDOMEN: Obese, nontender. EXTREMITITES: Trace edema. Objective - Vital Signs Vital signs: Vital Signs Temp 98.1 F 09/29/24 08:07 Pulse 72 09/29/24 08:07 Resp 16 09/29/24 08:07 BP 123/73 09/29/24 08:07 Pulse Ox 97 09/29/24 08:07 FiO2 Intake & Output 09/28/24 09/29/24 09/29/24 18:59 06:59 18:59 Intake Total 3570 1420 540 Output Total 2275 2150 100 Balance 1295 -730 440 Intake: Intake, IV Titration 1200 Amount Dextrose 5% in Water 1, 1200 000 ml @ 100 mls/hr IV . [id number] DAVY with Sodium Bicarb (1 Meq/ml) 150 ml Rx#:[id number] Oral 2370 1420 540 Output: Urine 2275 2150 100 Uretheral (Sawant) 100 Other: Voiding Method Indwelling Catheter Toilet Toilet Indwelling Catheter Indwelling Catheter - Labs CBC & Chem 7: 09/29/24 05:23 09/29/24 05:23 Labs: Abnormal Lab Results - Last 24 Hours (Table) 09/28/24 09/28/24 09/28/24 Range/Units 11:57 17:00 20:22 Monocytes # (0.20-1.00) X 10*3/uL Anion Gap (4.00-12.00) mmol/L BUN (9.0-27.0) mg/dL Creatinine (0.6-1.5) mg/dL Est GFR (CKD-EPI) (>=60) BUN/Creatinine Ratio (12.00-20.00) Ratio Glucose (70-110) mg/dL POC Glucose (mg/dL) 139 H 120 H 124 H (70-110) mg/dL Calcium (8.7-10.3) mg/dL Total Protein (6.2-8.2) g/dL Albumin (3.8-4.9) g/dL Albumin/Globulin Ratio (1.60-3.17) Ratio 09/29/24 09/29/24 09/29/24 Range/Units 05:23 05:23 07:06 Monocytes # 1.07 H (0.20-1.00) X 10*3/uL Anion Gap 13.70 H (4.00-12.00) mmol/L BUN 83.8 H (9.0-27.0) mg/dL Creatinine 3.5 H (0.6-1.5) mg/dL Est GFR (CKD-EPI) 19 L (>=60) BUN/Creatinine Ratio 23.94 H (12.00-20.00) Ratio Glucose 114 H (70-110) mg/dL POC Glucose (mg/dL) 114 H (70-110) mg/dL Calcium 8.3 L (8.7-10.3) mg/dL Total Protein 5.9 L (6.2-8.2) g/dL Albumin 3.6 L (3.8-4.9) g/dL Albumin/Globulin Ratio 1.57 L (1.60-3.17) Ratio Assessment and Plan Plan: Assessment: 1. Acute kidney injury secondary to ATN secondary to hypotension and hypovolemia from vomiting and diarrhea and further worsen with the use of CARISSA inhibitor. Also component of urinary retention. Creatinine 9.57 on admission - 3.5 today. No hydronephrosis noted on kidney ultrasound. Creatinine 1.2-1.3 in July and October 2023. 2. Nausea vomiting and diarrhea possibly gastroenteritis. Improved. Tolerating oral intake. 3. Benign hypertension. Controlled. 4. Metabolic acidosis secondary to acute kidney injury and GI losses. Improved with bicarb drip. 5. Hypovolemic hyponatremia improving with IV hydration. Resolved. Now sodium on the higher end. 6. Urinary retention. On Flomax. Has Sawant catheter. 7. Hyperphosphatemia secondary to acute kidney injury. Improved. Plan: Stop bicarb drip. Add oral bicarb. Start half-normal saline at 125 cc an hour. Replace potassium. Continue to hold all antihypertensives and also SGLT2 inhibitor. Maintain Sawant catheter. Strict I's and O's. Avoid nephrotoxins. Continue to monitor renal function and urine output.
[2024-09-29] MEDS: POTASSIUM CHLORIDE ER 20 MEQ TAB.ER PO STA (11:36)
[2024-09-29] MEDS: SODIUM CHLORIDE 0.45% 1,000 ML IV SCH (11:36)
[2024-09-29] MEDS: SODIUM BICARBONATE TAB 650 MG TAB PO SCH (12:05)
[2024-09-29 12:10] LABS: Glucose,Whole Blood 117 mg/dL (70-110)
--- NOTE | 2024-09-29 13:14 | P.PN ---
Subjective Progress Note Date: 09/29/24 Hospital Course: Patient is a 64-year-old male with past medical history of type II DM not on i nsulin, HTN, HLD, history of SVT. She presented to the ER on 09/26 with Nausea, Vomiting, Diarrhea started 1 week ago. Patient had significantly decreased oral intake but was trying to stay hydrated with Gatorade and water. Couple days ago he noted that his urine production has decreased significantly. He denies any fevers chills, shortness of breath, abdominal pain, chest pain. He denies any previous history of kidney disease. He is on Ozempic but today noticed his second weekly dose. On arrival afebrile with low blood pressure 83/54, satting well on room air, heart rate in 70s . CBC: 13.1, normal hemoglobin and platelet count, VBG with pH of 7.12, sodium 132, potassium 5.1, bicarb 7, BUN 113, creatinine 9.57, EGFR 5, glucose 142, LFTs normal, calcium, magnesium, total bilirubin, AST, ALT, ALP normal elevated lipase 869, viral panel negative Abdominal ultrasound showed no evidence of obstructive uropathy or renal calculus Patient was admitted for acute renal failure, nephrology consulted. Patient received 2 L of IVF boluses, was started on D5 sodium bicarb at 100 cc/h Sawant catheter was placed for urinary retention, patient has good appetite, he is nonoliguric, was started on Flomax for urinary retention, fluid to be continued, bicarb infusion to be continued, creatinine is improving. Urology consulted for urinary retention, recommended to continue tamsulosin and Sawant catheter that can be removed prior to discharge. Patient is creatinine continued to improve, bicarb normalized, IV fluids switched to half-normal saline at 125 cc/h, started on sodium bicarb tabs 650 twice daily Pertinent Imaging: No new imaging Subjective: Feeling well, denies any complaints. Mentioned that he actually feels even better than yesterday Pertinent positives and negatives as discussed above, a complete review of systems was performed and all other systems are negative. Vitals Signs Reviewed. General: [nontoxic], [no distress], [appears at stated age], obese Derm: [warm], [dry] Head: [atraumatic], [normocephalic], [symmetric] Eyes: [EOMI], [no lid lag], [anicteric sclera] Mouth: [no lip lesion], [mucus membranes moist] Cardiovascular: [S1S2 reg], [no murmur] Lungs: [CTA bilateral], [no rhonchi, no rales] , [no accessory muscle use] Abdominal: [soft], [ nontender to palpation], [no guarding], [no appreciable organomegaly] Ext: [no gross muscle atrophy], [no edema], [no contractures] Neuro: [ CN II-XI grossly intact], [no focal neuro deficits] Psych: [Alert], [oriented], [appropriate affect] Data Reviewed Today: Pertinent Labs: Unremarkable CBC, sodium 139, potassium 3.6, creatinine 6.4, bicarb 15.1, glucose is controlled Assessment and Plan Acute renal failure, improving Severe metabolic acidosis secondary to above, resolved Hyponatremia, resolved Leukocytosis, resolved Hypotension, resolved Urinary retention -Nephrology consulted, appreciate recommendations -IV fluids switched to half-normal saline at 125 cc/h, started on sodium bicarb tabs 650 twice daily -Monitor BMP, magnesium, phosphorus -Strict intake output, Sawant in place -Holding home triamterene hydrochlorothiazide 37.5/25, Ozempic, metoprolol 25 twice daily, lisinopril 10 mg, Farxiga 10 daily, amlodipine 10 mg Type II DM -Holding the above medications, continue with SSI and Accu-Cheks -A1c 5.5 Hypertension -normotensive, holding home medications CODE STATUSfull DVT prophylaxis: Heparin Anticipated discharge date: TBD Anticipated discharge place: home Objective - Vital Signs Vital signs: Vital Signs Temp 97.8 F 09/29/24 12:20 Pulse 79 09/29/24 12:20 Resp 16 09/29/24 12:20 BP 185/64 09/29/24 12:20 Pulse Ox 95 09/29/24 12:20 FiO2 Intake & Output 09/28/24 09/29/24 09/29/24 18:59 06:59 18:59 Intake Total 3570 1420 2900 Output Total 2275 2150 1200 Balance 1295 -730 1700 Intake: Intake, IV Titration 1200 Amount Dextrose 5% in Water 1, 1200 000 ml @ 100 mls/hr IV . [id number] DAVY with Sodium Bicarb (1 Meq/ml) 150 ml Rx#:[id number] Oral 2370 1420 2900 Output: Urine 2275 2150 1200 Uretheral (Sawant) 1200 Other: Voiding Method Indwelling Catheter Toilet Toilet Indwelling Catheter Indwelling Catheter # Bowel Movements 1 - Labs CBC & Chem 7: 09/29/24 05:23 09/29/24 05:23 Labs: Abnormal Lab Results - Last 24 Hours (Table) 09/28/24 09/28/24 09/29/24 Range/Units 17:00 20:22 05:23 Monocytes # 1.07 H (0.20-1.00) X 10*3/uL Anion Gap (4.00-12.00) mmol/L BUN (9.0-27.0) mg/dL Creatinine (0.6-1.5) mg/dL Est GFR (CKD-EPI) (>=60) BUN/Creatinine Ratio (12.00-20.00) Ratio Glucose (70-110) mg/dL POC Glucose (mg/dL) 120 H 124 H (70-110) mg/dL Calcium (8.7-10.3) mg/dL Total Protein (6.2-8.2) g/dL Albumin (3.8-4.9) g/dL Albumin/Globulin Ratio (1.60-3.17) Ratio 09/29/24 09/29/24 09/29/24 Range/Units 05:23 07:06 12:09 Monocytes # (0.20-1.00) X 10*3/uL Anion Gap 13.70 H (4.00-12.00) mmol/L BUN 83.8 H (9.0-27.0) mg/dL Creatinine 3.5 H (0.6-1.5) mg/dL Est GFR (CKD-EPI) 19 L (>=60) BUN/Creatinine Ratio 23.94 H (12.00-20.00) Ratio Glucose 114 H (70-110) mg/dL POC Glucose (mg/dL) 114 H 117 H (70-110) mg/dL Calcium 8.3 L (8.7-10.3) mg/dL Total Protein 5.9 L (6.2-8.2) g/dL Albumin 3.6 L (3.8-4.9) g/dL Albumin/Globulin Ratio 1.57 L (1.60-3.17) Ratio
[2024-09-29 17:10] LABS: Glucose,Whole Blood 101 mg/dL (70-110)
[2024-09-29 20:19] LABS: Glucose,Whole Blood 178 mg/dL (70-110)
[2024-09-30 09:19] LABS: BUN/Creat Ratio 27.83 Ratio (12.00-20.00); Calcium 7.7 mg/dL (8.7-10.3); Chloride 106 mmol/L (96-109); Glucose 107 mg/dL (70-110); Potassium 3.8 mmol/L (3.5-5.5); Sodium 140 mmol/L (135-145)
--- NOTE | 2024-09-30 10:37 | P.PN ---
Subjective Patient is seen in follow-up for acute kidney injury. Has a Sawant catheter for urinary retention. On half-normal saline. Oral intake is good. No active complaints. Renal function improving. Vital signs are stable. General: No acute distress. HEENT: Head exam is unremarkable. LUNGS: No audible rhonchi or wheezes. HEART: Rate and Rhythm are regular. ABDOMEN: Obese, nontender. EXTREMITITES: Trace edema. Objective - Vital Signs Vital signs: Vital Signs Temp 98.1 F 09/30/24 06:32 Pulse 81 09/30/24 06:32 Resp 19 09/30/24 06:32 BP 127/81 09/30/24 06:32 Pulse Ox 96 09/30/24 06:32 FiO2 Intake & Output 09/29/24 09/30/24 09/30/24 18:59 06:59 18:59 Intake Total 6880 540 240 Output Total 5800 400 Balance 1080 140 240 Intake: Oral 6880 540 240 Output: Urine 5800 400 Uretheral (Sawant) 1200 100 Other: Voiding Method Toilet Toilet Indwelling Catheter Indwelling Catheter # Bowel Movements 1 1 - Labs CBC & Chem 7: 09/29/24 05:23 09/30/24 03:26 Labs: Abnormal Lab Results - Last 24 Hours (Table) 09/29/24 09/29/24 09/30/24 Range/Units 12:09 20:17 03:26 BUN 64.0 H (9.0-27.0) mg/dL Creatinine 2.3 H (0.6-1.5) mg/dL Est GFR (CKD-EPI) 31 L (>=60) BUN/Creatinine Ratio 27.83 H (12.00-20.00) Ratio POC Glucose (mg/dL) 117 H 178 H (70-110) mg/dL Calcium 7.7 L (8.7-10.3) mg/dL Assessment and Plan Plan: Assessment: 1. Acute kidney injury secondary to ATN secondary to hypotension and hypovolemia from vomiting and diarrhea and further worsen with the use of CARISSA inhibitor. Also component of urinary retention. Creatinine 9.57 on admission - 2.3 today. No hydronephrosis noted on kidney ultrasound. Creatinine 1.2-1.3 in July and October 2023. 2. Nausea vomiting and diarrhea possibly gastroenteritis. Improved. Tolerating oral intake. 3. Benign hypertension. Controlled. 4. Metabolic acidosis secondary to acute kidney injury and GI losses. Improved with bicarb drip. Now on oral bicarb. 5. Hypovolemic hyponatremia improving with IV hydration. Resolved. Now sodium on the higher end. Improved with half-normal saline. 6. Urinary retention. On Flomax. Has Sawant catheter. Urology following. 7. Hyperphosphatemia secondary to acute kidney injury. Improved. Plan: Maintain half-normal saline. Decrease rate to 100 cc an hour. Encouraged oral intake. Continue to hold all antihypertensives and also SGLT2 inhibitor. Avoid nephrotoxins. Continue to monitor renal function and urine output. Voiding trial tomorrow if renal function continues to improve.
--- NOTE | 2024-09-30 12:08 | P.PN ---
Subjective Progress Note Date: 09/30/24 Hospital Course: Patient is a 64-year-old male with past medical history of type II DM not on i nsulin, HTN, HLD, history of SVT. She presented to the ER on 09/26 with Nausea, Vomiting, Diarrhea started 1 week ago. Patient had significantly decreased oral intake but was trying to stay hydrated with Gatorade and water. Couple days ago he noted that his urine production has decreased significantly. He denies any fevers chills, shortness of breath, abdominal pain, chest pain. He denies any previous history of kidney disease. He is on Ozempic but today noticed his second weekly dose. On arrival afebrile with low blood pressure 83/54, satting well on room air, heart rate in 70s . CBC: 13.1, normal hemoglobin and platelet count, VBG with pH of 7.12, sodium 132, potassium 5.1, bicarb 7, BUN 113, creatinine 9.57, EGFR 5, glucose 142, LFTs normal, calcium, magnesium, total bilirubin, AST, ALT, ALP normal elevated lipase 869, viral panel negative Abdominal ultrasound showed no evidence of obstructive uropathy or renal calculus Patient was admitted for acute renal failure, nephrology consulted. Patient received 2 L of IVF boluses, was started on D5 sodium bicarb at 100 cc/h Sawant catheter was placed for urinary retention, patient has good appetite, he is nonoliguric, was started on Flomax for urinary retention, fluid to be continued, bicarb infusion to be continued, creatinine is improving.switched to half-normal saline at 100 cc/h, started on sodium bicarb tabs 650 twice daily. Continue to monitor renal function, if improves-Sawant can be removed on 10/01 with voiding trial Urology consulted for urinary retention, recommended to continue tamsulosin and Sawant catheter that can be removed prior to discharge. Pertinent Imaging: No new imaging Subjective: Feeling well, denies any complaints. Pertinent positives and negatives as discussed above, a complete review of systems was performed and all other systems are negative. Vitals Signs Reviewed. General: [nontoxic], [no distress], [appears at stated age], obese Derm: [warm], [dry] Head: [atraumatic], [normocephalic], [symmetric] Eyes: [EOMI], [no lid lag], [anicteric sclera] Mouth: [no lip lesion], [mucus membranes moist] Cardiovascular: [S1S2 reg], [no murmur] Lungs: [CTA bilateral], [no rhonchi, no rales] , [no accessory muscle use] Abdominal: [soft], [ nontender to palpation], [no guarding], [no appreciable organomegaly] Ext: [no gross muscle atrophy], [no edema], [no contractures] Neuro: [ CN II-XI grossly intact], [no focal neuro deficits] Psych: [Alert], [oriented], [appropriate affect] Data Reviewed Today: Pertinent Labs: Creatinine improved to 2.3, bicarb normal, glucose controlled 10 7 Assessment and Plan Acute renal failure, improving Severe metabolic acidosis secondary to above, resolved Hyponatremia, resolved Leukocytosis, resolved Hypotension, resolved Urinary retention -Nephrology consulted, appreciate recommendations -IV fluids to half-normal saline at 100 cc/h, bicarb tabs 650 twice daily -Monitor BMP -Strict intake output, Sawant in place, possible void trial on 10/01 -Holding home triamterene hydrochlorothiazide 37.5/25, Ozempic, metoprolol 25 t wice daily, lisinopril 10 mg, Farxiga 10 daily, amlodipine 10 mg -continue flomax Type II DM -Holding the above medications, continue with SSI and Accu-Cheks -A1c 5.5 Hypertension -normotensive, holding home medications CODE STATUSfull DVT prophylaxis: Heparin Anticipated discharge date: TBD Anticipated discharge place: home Objective - Vital Signs Vital signs: Vital Signs Temp 97.7 F 09/30/24 11:49 Pulse 64 09/30/24 11:49 Resp 16 09/30/24 11:49 BP 154/77 09/30/24 11:49 Pulse Ox 97 09/30/24 11:49 FiO2 Intake & Output 09/29/24 09/30/24 09/30/24 18:59 06:59 18:59 Intake Total 6880 540 240 Output Total 5800 400 Balance 1080 140 240 Intake: Oral 6880 540 240 Output: Urine 5800 400 Uretheral (Sawant) 1200 100 Other: Voiding Method Toilet Toilet Indwelling Catheter Indwelling Catheter # Bowel Movements 1 1 - Labs CBC & Chem 7: 09/29/24 05:23 09/30/24 03:26 Labs: Abnormal Lab Results - Last 24 Hours (Table) 09/29/24 09/29/24 09/30/24 Range/Units 12:09 20:17 03:26 BUN 64.0 H (9.0-27.0) mg/dL Creatinine 2.3 H (0.6-1.5) mg/dL Est GFR (CKD-EPI) 31 L (>=60) BUN/Creatinine Ratio 27.83 H (12.00-20.00) Ratio POC Glucose (mg/dL) 117 H 178 H (70-110) mg/dL Calcium 7.7 L (8.7-10.3) mg/dL
[2024-09-30 12:14] LABS: Glucose,Whole Blood 99 mg/dL (70-110)
[2024-09-30 17:04] LABS: Glucose,Whole Blood 153 mg/dL (70-110)
[2024-09-30 20:27] LABS: Glucose,Whole Blood 116 mg/dL (70-110)
[2024-10-01 07:37] LABS: Glucose,Whole Blood 149 mg/dL (70-110)
[2024-10-01 08:04] LABS: Glucose,Whole Blood 139 mg/dL (70-110)
[2024-10-01 09:30] LABS: BUN/Creat Ratio 23.56 Ratio (12.00-20.00); Blood Urea Nitrogen 37.7 mg/dL (9.0-27.0); Carbon Dioxide 25.1 mmol/L (21.6-31.8); Chloride 106 mmol/L (96-109); Glucose 141 mg/dL (70-110); Magnesium 1.4 mg/dL (1.5-2.4); Potassium 3.9 mmol/L (3.5-5.5); Sodium 141 mmol/L (135-145)
[2024-10-01] MEDS: amLODIPine 10 MG TAB PO SCH (10:40)
[2024-10-01] MEDS: MAGNESIUM SULFATE-D5W PMX 1 GM in DEXTROSE/WATER 1 100ML.BAG IVPB SCH (10:40)
[2024-10-01] MEDS: METOPROLOL SUCCINATE (ER) 50 MG TAB.ER.24H PO SCH (10:40)
[2024-10-01 13:08] LABS: Glucose,Whole Blood 118 mg/dL (70-110)
--- NOTE | 2024-10-01 14:03 | P.PN ---
Subjective Progress Note Date: 10/01/24 64 year old M with history of DM, HTN, HLD, SVT presents to the ED for 1 week of intractable N/V/D. In the ED he underwent extensive evaluation. BP 87/55, HR 77, RR 18, T 97.2F, 98% on RA. CBC, CMP significant for WBC 12.1, Na 129, bicarb 16, BUN 107, Cr 7.69, glu 394, Ca 6.8. Phos 6.6. Mag 1.8. Lipase 869. Procal 0.94. TSH 1.31. UA mod blood, trace protein. Flu, RSV, COVID neg. Renal US no obstruction. EKG sinus rhythm with no ST T wave changes. Sawant inserted for urinary retention and admitted for Nephrology evaluation. Started on D5 bicarb infusion. Farxiga, HCTZ, Triameterene, Lisinopril held. Urology consulted, started on Flomax recommending DC Sawant and voiding trial prior to discharge. 10/01 Patient was seen and examined. No complaints. BMP BUN 37.7, Cr 1.6, glu 141, Ca 8. Mag 1.4. BP 157/91, HR 85. General: non toxic, no distress, appears at stated age Derm: warm, dry Head: atraumatic, normocephalic, symmetric Mouth: no lip lesion, mucus membranes moist Cardiovascular: Good distal perfusion in all 4 extremities. Lungs: Breathing comfortably, no accessory muscle use Ext: no gross muscle atrophy, 1-2+ pitting edema, no contractures Neuro: no focal neuro deficits Psych: Alert and oriented. Based on my assessment of this patient, this patient meets a high complexity level of care. DANGELO on CKD stage II likely prerenal worsened with urinary retention: Improving. DC Sawant and attempt voiding trial. Hold Farxiga, HCTZ, Triameterene, Lisinopril. DC IVF. Flomax 0.4 mg PO QD. Nephrology and Urology on board. Hypomagnesemia: 2g mag sulfate x 1 today. DM: ISS with Accuchecks ACHS along with hypoglycemic precautions. Hypertension: Restart Metoprolol 50 mg PO QD and Amlodipine 10 mg PO QD. h/o SVT: Metoprolol as above. Resolved: Metabolic acidosis, hyperglycemia. Voiding trial today. Repeat renal function tomorrow. Anticipate DC tomorrow if renal function improved and able to void. CODE STATUS: FULL CODE. DVT Prophylaxis: Heparin SQ GI Prophylaxis: Designated medical POA if patient is not able to make medical decisions for themselves: I have reviewed the following hospice care sales consultant notes: Nephrology. I have reviewed the results of the following tests: BMP, Mag. I have ordered the following tests: BMP, Mag. I have discussed the care of this patient with the following independent historian: RN. I have independently interpreted the following test below: I have discussed the management of this patient with the following physician: Objective - Vital Signs Vital signs: Vital Signs Temp 98.3 F 10/01/24 07:25 Pulse 85 10/01/24 07:25 Resp 19 10/01/24 07:25 BP 157/91 10/01/24 07:25 Pulse Ox 98 10/01/24 07:25 FiO2 Intake & Output 09/30/24 10/01/24 10/01/24 18:59 06:59 18:59 Intake Total 4308 700 120 Output Total 4300 2125 Balance 8 -1425 120 Intake: Oral 4308 700 120 Output: Urine 4300 2125 Uretheral (Sawant) 3500 Other: Voiding Method Toilet Toilet Indwelling Catheter Indwelling Catheter Indwelling Catheter # Bowel Movements 1 - Labs CBC & Chem 7: 09/29/24 05:23 10/01/24 06:06 Labs: Abnormal Lab Results - Last 24 Hours (Table) 09/30/24 09/30/24 09/30/24 Range/Units 07:26 17:02 20:25 BUN (9.0-27.0) mg/dL Creatinine (0.6-1.5) mg/dL Est GFR (CKD-EPI) (>=60) BUN/Creatinine Ratio (12.00-20.00) Ratio Glucose (70-110) mg/dL POC Glucose (mg/dL) 139 H 153 H 116 H (70-110) mg/dL Calcium (8.7-10.3) mg/dL Magnesium (1.5-2.4) mg/dL 10/01/24 10/01/24 10/01/24 Range/Units 06:06 07:26 12:22 BUN 37.7 H (9.0-27.0) mg/dL Creatinine 1.6 H (0.6-1.5) mg/dL Est GFR (CKD-EPI) 48 L (>=60) BUN/Creatinine Ratio 23.56 H (12.00-20.00) Ratio Glucose 141 H (70-110) mg/dL POC Glucose (mg/dL) 149 H 118 H (70-110) mg/dL Calcium 8.0 L (8.7-10.3) mg/dL Magnesium 1.4 L (1.5-2.4) mg/dL
--- NOTE | 2024-10-01 15:54 | P.PN ---
Subjective Patient is seen for follow-up for acute kidney injury. Renal function has improved. Serum creatinine down to 1.6 today. Maintained on IV fluids. No significant complaints today. Objective - Vital Signs Vital signs: Vital Signs Temp 98.1 F 10/01/24 14:00 Pulse 66 10/01/24 14:00 Resp 21 10/01/24 14:00 BP 144/83 10/01/24 14:00 Pulse Ox 98 10/01/24 14:00 FiO2 Intake & Output 09/30/24 10/01/24 10/01/24 18:59 06:59 18:59 Intake Total 4308 700 120 Output Total 4300 2125 Balance 8 -1425 120 Intake: Oral 4308 700 120 Output: Urine 4300 2125 Uretheral (Sawant) 3500 Other: Voiding Method Toilet Toilet Indwelling Catheter Indwelling Catheter Indwelling Catheter # Bowel Movements 1 - Exam Patient is awake, comfortable, no acute distress Examination of the heart S1 and S2 Examination of the lungs bilateral breath sounds normal Abdomen is soft nontender Trace edema noted - Labs CBC & Chem 7: 09/29/24 05:23 10/01/24 06:06 Labs: Abnormal Lab Results - Last 24 Hours (Table) 09/30/24 09/30/24 09/30/24 Range/Units 07:26 17:02 20:25 BUN (9.0-27.0) mg/dL Creatinine (0.6-1.5) mg/dL Est GFR (CKD-EPI) (>=60) BUN/Creatinine Ratio (12.00-20.00) Ratio Glucose (70-110) mg/dL POC Glucose (mg/dL) 139 H 153 H 116 H (70-110) mg/dL Calcium (8.7-10.3) mg/dL Magnesium (1.5-2.4) mg/dL 10/01/24 10/01/24 10/01/24 Range/Units 06:06 07:26 12:22 BUN 37.7 H (9.0-27.0) mg/dL Creatinine 1.6 H (0.6-1.5) mg/dL Est GFR (CKD-EPI) 48 L (>=60) BUN/Creatinine Ratio 23.56 H (12.00-20.00) Ratio Glucose 141 H (70-110) mg/dL POC Glucose (mg/dL) 149 H 118 H (70-110) mg/dL Calcium 8.0 L (8.7-10.3) mg/dL Magnesium 1.4 L (1.5-2.4) mg/dL Assessment and Plan Assessment: 1. Acute kidney injury secondary to ATN secondary to hypotension and hypovolemia from vomiting and diarrhea and further worsened with the use of CARISSA inhibitor. Also component of urinary retention. Creatinine 9.57 on admission - 1.6 today. No hydronephrosis noted on kidney ultrasound. Creatinine 1.2-1.3 in July and October 2023. 2. Nausea vomiting and diarrhea possibly gastroenteritis. Improved. Tolerating oral intake. 3. Benign hypertension. Controlled. 4. Metabolic acidosis secondary to acute kidney injury and GI losses. Improved with bicarb drip. Now on oral bicarb. 5. Hypovolemic hyponatremia improving with IV hydration. Resolved. Now sodium on the higher end. Improved with half-normal saline. 6. Urinary retention. On Flomax. Has Sawant catheter. Urology following. 7. Hyperphosphatemia secondary to acute kidney injury. Improved. Plan: Continue with IV fluids Repeat labs in a.m. Continue to encourage increased oral intake
[2024-10-01 17:37] LABS: Glucose,Whole Blood 96 mg/dL (70-110)
--- NOTE | 2024-10-01 21:50 | P.PN ---
Subjective Progress Note Date: 10/01/24 Principal diagnosis: Urinary retention The patient is a 64-year-old white male hospitalized with acute kidney injury secondary to ATN, which is felt to be due to hypotension and hypovolemia resulting from vomiting and diarrhea and exacerbated by the use of an CARISSA inhibitor. Urinary retention may have been a contributing factor as well, and the Sawant catheter remains in place. The serum creatinine level upon admission was 9.57, and has gradually improved to 1.6 earlier today. The Sawant catheter was removed this morning, and he has voided approximately 6 times without diffi culty. Bladder scan has confirmed adequate bladder emptying. Objective - Vital Signs Vital signs: Vital Signs Temp 98.8 F 10/01/24 01:21 Pulse 84 10/01/24 01:21 Resp 18 10/01/24 01:21 BP 163/73 10/01/24 01:21 Pulse Ox 96 10/01/24 01:21 FiO2 Intake & Output 09/30/24 10/01/24 10/01/24 18:59 06:59 18:59 Intake Total 4308 700 Output Total 4300 2125 Balance 8 -1425 Intake: Oral 4308 700 Output: Urine 4300 2125 Uretheral (Sawant) 3500 Other: Voiding Method Toilet Toilet Indwelling Catheter Indwelling Catheter # Bowel Movements 1 - Constitutional General appearance: Present: average body habitus, cooperative, no acute distress - Psychiatric Psychiatric: Present: A&O x's 3 - Labs CBC & Chem 7: 09/29/24 05:23 10/01/24 06:06 Labs: Abnormal Lab Results - Last 24 Hours (Table) 09/30/24 09/30/24 09/30/24 Range/Units 03:26 17:02 20:25 BUN 64.0 H (9.0-27.0) mg/dL Creatinine 2.3 H (0.6-1.5) mg/dL Est GFR (CKD-EPI) 31 L (>=60) BUN/Creatinine Ratio 27.83 H (12.00-20.00) Ratio POC Glucose (mg/dL) 153 H 116 H (70-110) mg/dL Calcium 7.7 L (8.7-10.3) mg/dL 10/01/24 Range/Units 07:26 BUN (9.0-27.0) mg/dL Creatinine (0.6-1.5) mg/dL Est GFR (CKD-EPI) (>=60) BUN/Creatinine Ratio (12.00-20.00) Ratio POC Glucose (mg/dL) 149 H (70-110) mg/dL Calcium (8.7-10.3) mg/dL Assessment and Plan (1) Retention of urine, unspecified Current Visit: Yes Status: Acute Code(s): R33.9 - RETENTION OF URINE, UNSPECIFIED SNOMED Code(s): 187560304 Plan: Continue tamsulosin. He would be my suggestion that Mr. Garcia be discharged home on tamsulosin. I did suggest that if he continues to void without difficulty at home, he should hold the tamsulosin and resume it only if he notes that he voids better while taking it then when he does not. He will follow-up with me as an outpatient as needed. Please notify me if I can be of any further assistance during this hospitalization.
[2024-10-02 04:54] LABS: African American GFR (CKD) 54 (>60 ml/min/1.73 sqM); Anion Gap 10 mmol/L; Blood Urea Nitrogen 31 mg/dL (9-20); Calcium 8.6 mg/dL (8.4-10.2); Carbon Dioxide 25 mmol/L (22-30); Chloride 102 mmol/L (98-107); Glucose 95 mg/dL (74-99); Magnesium 1.6 mg/dL (1.6-2.3); Non-African American GFR(CKD) 47 (>60 ml/min/1.73 sqM); Potassium 4.4 mmol/L (3.5-5.1); Sodium 137 mmol/L (137-145)
[2024-10-02 07:12] LABS: Glucose,Whole Blood 106 mg/dL (70-110)
[2024-10-02 08:24] VITALS: BP 138/85; PULSE 67; RESP 18; TEMP 98
--- NOTE | 2024-10-02 12:02 | P.DS ---
Providers Date of admission: 09/26/24 09:06 Expected date of discharge: 10/02/24 Attending physician: Galen Gruber Consults: 09/26/24 08:47 Consult Physician Urgent Consulting Provider: Tristen Rivera Consult Reason/Comments: Acute renal failure Do you want consulting provider notified?: Already Contacted 09/27/24 10:41 Consult Physician Routine Consulting Provider: Jonatan Abdi Consult Reason/Comments: urinary retention Do you want consulting provider notified?: Yes Primary care physician: [facility] Course: 64 year old M with history of DM, HTN, HLD, SVT presents to the ED for 1 week of intractable N/V/D. In the ED he underwent extensive evaluation. BP 87/55, HR 77, RR 18, T 97.2F, 98% on RA. CBC, CMP significant for WBC 12.1, Na 129, bicarb 16, BUN 107, Cr 7.69, glu 394, Ca 6.8. Phos 6.6. Mag 1.8. Lipase 869. Procal 0.94. TSH 1.31. UA mod blood, trace protein. Flu, RSV, COVID neg. Renal US no obstruction. EKG sinus rhythm with no ST T wave changes. Sawant inserted for urinary retention and admitted for Nephrology evaluation. Started on D5 bicarb infusion. Farxiga, HCTZ, Triameterene, Lisinopril held. Urology consulted, started on Flomax recommending DC Sawant and voiding trial prior to discharge. 10/02 Patient was seen and examined. No complaints. Voiding well. BP 138/85 this morning. BMP BUN 31, Cr 1.54. Mag 1.6. Discharge Plan: Plans for discharge home today. Prescription for Flomax sent to pharmacy. Continue Amlodipine, Farxiga and Metoprolol on discharge. Advised to hydrate and repeat BMP in [address] Valladares. He can possibly re-start Lisinopril and diuretics if renal function continue to show improvement at that time. General: non toxic, no distress, appears at stated age Derm: warm, dry Head: atraumatic, normocephalic, symmetric Mouth: no lip lesion, mucus membranes moist Cardiovascular: Normal S1 S2. No murmurs. Lungs: Clear to auscultation bilaterally, no accessory muscle use Ext: no gross muscle atrophy, 1+ pitting edema, no contractures Neuro: no focal neuro deficits Psych: Alert and oriented. Discharge Diagnosis: DANGELO on CKD stage II likely prerenal worsened with urinary retention: Hypomagnesemia DM Hypertension h/o SVT Resolved: Metabolic acidosis, hyperglycemia This complex discharge took 35 minutes to complete. Patient Condition at Discharge: Stable Plan - Discharge Summary Discharge Rx Participant: Yes New Discharge Prescriptions: New Tamsulosin [Flomax] 0.4 mg PO PC-BRKFST #30 cap Continue amLODIPine [Norvasc] 10 mg PO DAILY Semaglutide [Ozempic] 1 mg SQ WE Metoprolol Succinate (ER) [Toprol XL] 50 mg PO DAILY Dapagliflozin Propanediol [Farxiga] 10 mg PO DAILY Discontinued lisinopriL 40 mg PO DAILY Discharge Medication List amLODIPine [Norvasc] 10 mg PO DAILY 07/22/23 [History] Dapagliflozin Propanediol [Farxiga] 10 mg PO DAILY 01/12/24 [History] Metoprolol Succinate (ER) [Toprol XL] 50 mg PO DAILY 09/26/24 [History] Semaglutide [Ozempic] 1 mg SQ WE 09/26/24 [History] Tamsulosin [Flomax] 0.4 mg PO PC-BRKFST #30 cap 10/02/24 [Rx] Follow up Appointment(s)/Referral(s): David Valladares DO [Primary Care Provider] - 10/08/24 10:40 am (Appointment will be with Dr. Valladares. ) Patient Instructions/Handouts: Acute Kidney Injury (DC), Metabolic Acidosis (GEN) Activity/Diet/Wound Care/Special Instructions: Repeat BMP in 3 days follow up with PCP Dr. Valladares Discharge Disposition: HOME SELF-CARE
--- NOTE | 2024-10-02 18:10 | P.PN ---
Subjective Patient is seen for follow-up for acute kidney injury. Renal function has improved. Serum creatinine down to 1.5 today. Maintained on IV fluids. No significant complaints today. Objective - Vital Signs Vital signs: Vital Signs Temp 98.0 F 10/02/24 07:13 Pulse 67 10/02/24 07:13 Resp 18 10/02/24 07:13 BP 138/85 10/02/24 07:13 Pulse Ox 96 10/02/24 07:13 FiO2 Intake & Output 10/01/24 10/02/24 10/02/24 18:59 06:59 18:59 Intake Total 980 540 Output Total 700 600 550 Balance 280 -60 -550 Intake: Intake, IV Titration 200 Amount Magnesium Sulfate-D5w Pmx 200 1 gm In Dextrose/Water 1 100ml.bag @ 100 mls/hr IVPB Q1H DAVY Rx#: [id number] Oral 780 540 Output: Urine 700 600 550 Other: Voiding Method Indwelling Catheter Toilet Toilet Urinal Urinal # Voids 400 - Exam Patient is awake, comfortable, no acute distress Examination of the heart S1 and S2 Examination of the lungs bilateral breath sounds normal Abdomen is soft nontender Trace edema noted - Labs CBC & Chem 7: 09/29/24 05:23 10/02/24 04:01 Labs: Abnormal Lab Results - Last 24 Hours (Table) 10/02/24 Range/Units 04:01 BUN 31 H (9-20) mg/dL Creatinine 1.54 H (0.66-1.25) mg/dL Assessment and Plan Assessment: 1. Acute kidney injury secondary to ATN secondary to hypotension and hypovolemia from vomiting and diarrhea and further worsened with the use of CARISSA inhibitor. Also component of urinary retention. Creatinine 9.57 on admission - 1.5 today. No hydronephrosis noted on kidney ultrasound. Creatinine 1.2-1.3 in July and October 2023. 2. Nausea vomiting and diarrhea possibly gastroenteritis. Improved. Tolerat ing oral intake. 3. Benign hypertension. Controlled. 4. Metabolic acidosis secondary to acute kidney injury and GI losses. Improved with bicarb drip. Now on oral bicarb. 5. Hypovolemic hyponatremia improving with IV hydration. Resolved. Now sodium on the higher end. Improved with half-normal saline. 6. Urinary retention. On Flomax. Has Sawant catheter. Urology following. 7. Hyperphosphatemia secondary to acute kidney injury. Improved. Plan: Stable for discharge from nephrology standpoint Continue to encourage increased oral intake
== END 2024-10-02 11:20 | disposition home or self-care (01) | DRG 683 ==
LOC: EC 05:56 → 5NMEDONC 09:06
PROVIDERS: ADMIT Student in an Organized Health Care Education/Training Program; ATTEND Student in an Organized Health Care Education/Training Program
DX: N17.0 Acute kidney failure with tubular necrosis (principal); E87.1 Hypo-osmolality and hyponatremia; E87.20 Acidosis, unspecified; E83.39 Other disorders of phosphorus metabolism; E11.22 Type 2 diabetes mellitus with diabetic chronic kidney disease; D72.829 Elevated white blood cell count, unspecified; E78.5 Hyperlipidemia, unspecified; I12.9 Hypertensive chronic kidney disease with stage 1 through stage 4 chronic kidney disease, or unspecified chronic kidney disease; Z11.52 Encounter for screening for COVID-19; N18.2 Chronic kidney disease, stage 2 (mild); E87.70 Fluid overload, unspecified; T46.4X5A Adverse effect of angiotensin-converting-enzyme inhibitors, initial encounter; E83.42 Hypomagnesemia; E86.1 Hypovolemia; R33.8 Other retention of urine; I95.9 Hypotension, unspecified; Z79.84 Long term (current) use of oral hypoglycemic drugs; Z79.899 Other long term (current) drug therapy; Z87.440 Personal history of urinary (tract) infections; Z96.643 Presence of artificial hip joint, bilateral; Z86.79 Personal history of other diseases of the circulatory system; X58.XXXA Exposure to other specified factors, initial encounter
CPT/HCPCS: 36415; 51702; 51798; 76770; 80048; 80053; 81001; 82550; 82803; 83036; 83605; 83690; 83735; 84100; 84145; 84443; 85025; 87636; 93005; 96361; 96365; 96366; 96375; 99285

== ENCOUNTER → 2024-10-05 | Outpatient (CLI) | payer BC ==
[2024-10-05 15:17] LABS: BUN/Creat Ratio 13.14 Ratio (12.00-20.00); Blood Urea Nitrogen 18.4 mg/dL (9.0-27.0); Calcium 8.5 mg/dL (8.7-10.3); Carbon Dioxide 25.5 mmol/L (21.6-31.8); Chloride 107 mmol/L (96-109); Glucose 144 mg/dL (70-110); Potassium 4.8 mmol/L (3.5-5.5); Sodium 143 mmol/L (135-145)
== END | disposition home or self-care (01) ==
LOC: LABWHC1 10:21
PROVIDERS: ATTEND Family Medicine
DX: E87.20 Acidosis, unspecified (principal); N17.0 Acute kidney failure with tubular necrosis
CPT/HCPCS: 36415; 80048

== ENCOUNTER → 2024-10-15 | Outpatient (CLI) | payer BC ==
[2024-10-15 14:57] LABS: Basophils # (A) 0.04 X 10*3/uL (0.00-0.10); Basophils % (A) 0.6 %; Eosinophils # (A) 0.15 X 10*3/uL (0.04-0.35); Eosinophils % (A) 2.3 %; HGB 14.3 g/dL (13.0-17.0); Lymphocytes # (A) 1.93 X 10*3/uL (0.90-5.00); Lymphocytes % (A) 29.8 %; MCH 29.6 pg (27.0-32.0); MCHC 32.5 g/dL (32.0-37.0); MCV 91.1 FL (80.0-97.0); Mean Platelet Volume 10.1 FL (9.5-12.2); Monocytes % (A) 10.8 %; NRBC Per 100 WBC 0 X 10*3/uL (0.00-0.01); Neutrophils # (A) 3.62 X 10*3/uL (1.80-7.70); Neutrophils % (A) 55.9 %; Platelet Count 206 X 10*3/uL (140-440); RBC 4.83 X 10*6/uL (4.40-5.60); WBC 6.48 X 10*3/uL (4.50-10.00)
[2024-10-15 15:26] LABS: ALT 28 U/L (10-49); AST 22 U/L (14-35); Albumin 4.1 g/dL (3.8-4.9); Albumin/Globulin Ratio 1.64 Ratio (1.60-3.17); Alkaline Phosphatase 62 U/L (41-126); BUN/Creat Ratio 17.93 Ratio (12.00-20.00); Blood Urea Nitrogen 26.9 mg/dL (9.0-27.0); Carbon Dioxide 22.5 mmol/L (21.6-31.8); Chloride 106 mmol/L (96-109); Chol/HDL Ratio 3.74 Ratio; Globulin 2.5 g/dL (1.6-3.3); Glucose 119 mg/dL (70-110); LDL Cholesterol,Calculated 76.9 mg/dL (0.0-131.0); Magnesium 1.8 mg/dL (1.5-2.4); Potassium 4.5 mmol/L (3.5-5.5); Sodium 138 mmol/L (135-145); Total Bilirubin 0.5 mg/dL (0.3-1.2); Total Protein 6.6 g/dL (6.2-8.2); VLDL Calculation 19.82 mg/dL (5.00-40.00)
[2024-10-15 18:43] LABS: Microalbumin Creatinine Ratio <15 mg/g Cr (0-30); Urine Creatinine 79.6 mg/dL (39.0-259.0)
== END | disposition home or self-care (01) ==
LOC: LABWHC1 08:10
PROVIDERS: ATTEND Internal Medicine
DX: Z12.5 Encounter for screening for malignant neoplasm of prostate (principal); I10 Essential (primary) hypertension; E11.9 Type 2 diabetes mellitus without complications
CPT/HCPCS: 80061; 80053; 84443; 83735; 85025; 82043; 82570; 83036; 36415; G0103